=== PATIENT | female | born 1945 | race American Indian/Alaskan Native ===

== ENCOUNTER 2018-10-30 15:43 | Inpatient (IN) | payer MEDICARE ==
--- NOTE | 2018-10-30 15:50 | Emergency Department Report ---
ED Neuro Deficit HPI - General Chief Complaint: Neuro Symptoms/Deficit Stated Complaint: POSSIBLE STROKE Time Seen by Provider: 10/30/18 15:48 Source: patient, EMS Mode of arrival: Stretcher Limitations: No Limitations - History of Present Illness Initial Comments: Patient c/o a sudden onset of aphesia at 1500 hours today. This has resolved currently per patient and EMS. Patient is on Eliquis. -: Sudden Time: 17:00 Last Observed Normal: 17:00 Location: speech History of same: No Place: home Severity: Unable to Determine On Anticoagulants: Yes Context: sudden onset Associated Symptoms: denies other symptoms Treatments Prior to Arrival: none - Related Data Home Medications: Home Medications Medication Instructions Recorded Confirmed Last Taken AtorvaSTATin [Lipitor] 20 mg PO DAILY 01/29/16 10/30/18 10/29/18 Linagliptin [Tradjenta] 5 mg PO QDAY 01/29/16 10/30/18 10/29/18 Metoprolol-HCTZ 100-50 mg TAB 1 tab PO DAILY 01/29/16 10/30/18 10/29/18 Mv-Mn/Iron/Folic Acid/Herb 190 1 tab PO DAILY 01/29/16 10/30/18 10/29/18 [Vitamin D3 Complete Caplet] NIFEdipine [Nifedipine ER] 30 mg PO DAILY 01/29/16 10/30/18 10/29/18 Nettleton-3 Fatty Acids [Nettleton-3] 1 tab PO DAILY 01/29/16 10/30/18 10/29/18 Vitamin B Complex 1 tab PO DAILY 01/29/16 10/30/18 10/29/18 Apixaban [Eliquis] 2.5 mg PO DAILY 10/30/18 10/30/18 10/29/18 Allergies/Adverse Reactions: Allergies Allergy/AdvReac Type Severity Reaction Status Date / Time No Known Allergies Allergy Verified 10/30/18 16:34 ED Review of Systems ROS: Stated complaint: POSSIBLE STROKE Other details as noted in HPI Comment: All other systems reviewed and negative Constitutional: denies: chills, fever Eyes: denies: eye pain, eye discharge, vision change ENT: denies: ear pain, throat pain Respiratory: denies: cough, shortness of breath, wheezing Cardiovascular: denies: chest pain, palpitations Endocrine: no symptoms reported Gastrointestinal: denies: abdominal pain, nausea, diarrhea Genitourinary: denies: urgency, dysuria, discharge Musculoskeletal: denies: back pain, joint swelling, arthralgia Skin: denies: rash, lesions Neurological: denies: headache, weakness, numbness, paresthesias, confusion Psychiatric: denies: anxiety, depression Hematological/Lymphatic: denies: easy bleeding, easy bruising ED Past Medical Hx - Past Medical History Hx Hypertension: Yes Hx Diabetes: Yes Hx Deep Vein Thrombosis: Yes Hx Arthritis: Yes Additional medical history: diabetic neuropathy - Social History Smoking Status: Never Smoker - Medications Home Medications: Home Medications Medication Instructions Recorded Confirmed Last Taken Type AtorvaSTATin [Lipitor] 20 mg PO DAILY 01/29/16 10/30/18 10/29/18 History Linagliptin [Tradjenta] 5 mg PO QDAY 01/29/16 10/30/18 10/29/18 History Metoprolol-HCTZ 100-50 mg TAB 1 tab PO DAILY 01/29/16 10/30/18 10/29/18 History Mv-Mn/Iron/Folic Acid/Herb 190 1 tab PO DAILY 01/29/16 10/30/18 10/29/18 History [Vitamin D3 Complete Caplet] NIFEdipine [Nifedipine ER] 30 mg PO DAILY 01/29/16 10/30/18 10/29/18 History Nettleton-3 Fatty Acids [Nettleton-3] 1 tab PO DAILY 01/29/16 10/30/18 10/29/18 History Vitamin B Complex 1 tab PO DAILY 01/29/16 10/30/18 10/29/18 History Apixaban [Eliquis] 2.5 mg PO DAILY 10/30/18 10/30/18 10/29/18 History ED Neuro Physical Exam - General Limitations: No Limitations General appearance: alert, in no apparent distress Suspected Stroke: Yes - Head Head exam: Present: atraumatic, normocephalic - Eye Eye exam: Present: normal appearance, PERRL, EOMI Pupils: Present: normal accommodation - ENT ENT exam: Present: normal exam, normal orophraynx, mucous membranes moist - Neck Neck exam: Present: normal inspection, full ROM. Absent: tenderness, meningismus - Respiratory Respiratory exam: Present: normal lung sounds bilaterally. Absent: respiratory distress, wheezes, rales, rhonchi - Cardiovascular Cardiovascular Exam: Present: regular rate, normal rhythm. Absent: systolic murmur, diastolic murmur, rubs, gallop - GI/Abdominal GI/Abdominal exam: Present: soft, normal bowel sounds - Extremities Exam Extremities exam: Present: normal inspection, normal capillary refill - Back Exam Back exam: Present: normal inspection, full ROM - Neurological Exam Neurological exam: Present: alert, oriented X3, CN II-XII intact - NIHSS Assessment Interval: Baseline 1a. Level of Consciousness: alert/keenly responsive 1b. LOC Questions: answers both correctly 1c. LOC Commands: performs tasks correctly 2. Best Gaze: normal 3. Visual: no visual loss 4. Facial Palsy: normal symmetrical movement 5b. Motor Arm Right: no drift 5a. Motor Arm Left: no drift 6a. Motor Leg Left: no drift 6b. Motor Leg Right: some gravity effort 7. Limb Ataxia: absent 8. Sensory: normal 9. Best Language: no aphasia 10. Dysarthria: normal 11. Extinction/Inattention: no abnormality Total Score: 2 Stroke Severity: Minor Stroke - Psychiatric Psychiatric exam: Present: normal affect, normal mood - Skin Skin exam: Present: warm, dry, intact, normal color. Absent: rash ED Course Vital Signs 10/30/18 16:39 Temperature 98.6 F Pulse Rate 127 H Respiratory 18 Rate Blood Pressure 127/76 [Right] O2 Sat by Pulse 98 Oximetry - Reevaluation(s) Reevaluation #1: 10/30/18 17:09 On reevaluation, patient passed swallow study and her condition is unchanged. - Consultations Consultation #1: 10/30/18 16:06 Teleneurologist telephone coin box collector Dr Kishore Gay was consulted and he said patient is NOT a candidate for TPA. He recommend admission and further evaluation with MRI/MRA by the hospitalist. Consultation #2: 10/30/18 17:09 Dr Castillo to admit patient for further evaluation and management. - Lab Data Result diagrams: 10/30/18 16:13 10/30/18 16:13 Lab Results 10/30/18 10/30/18 10/30/18 Range/Units 16:13 16:13 16:26 WBC 12.2 H (4.5-11.0) K/mm3 RBC 6.07 H (3.65-5.03) M/mm3 Hgb 15.6 H (10.1-14.3) gm/dl Hct 48.2 H (30.3-42.9) % MCV 79 (79-97) fl MCH 26 L (28-32) pg MCHC 32 (30-34) % RDW 19.9 H (13.2-15.2) % Plt Count 247 (140-440) K/mm3 Lymph % (Auto) 9.7 L (13.4-35.0) % [place] % (Auto) 10.3 H (0.0-7.3) % Eos % (Auto) 0.7 (0.0-4.3) % Baso % (Auto) 0.6 (0.0-1.8) % Lymph # 1.2 (1.2-5.4) K/mm3 [place] # 1.3 H (0.0-0.8) K/mm3 Eos # 0.1 (0.0-0.4) K/mm3 Baso # 0.1 (0.0-0.1) K/mm3 Seg Neutrophils % 78.7 H (40.0-70.0) % Seg Neutrophils # 9.6 H (1.8-7.7) K/mm3 Sodium 139 (137-145) mmol/L Potassium 3.3 L (3.6-5.0) mmol/L Chloride 99.9 (98-107) mmol/L Carbon Dioxide 22 (22-30) mmol/L Anion Gap 20 mmol/L BUN 9 (7-17) mg/dL Creatinine 0.8 (0.7-1.2) mg/dL Estimated GFR > 60 ml/min BUN/Creatinine Ratio 11 % Glucose 93 (65-100) mg/dL Calcium 7.4 L (8.4-10.2) mg/dL Total Bilirubin 0.80 (0.1-1.2) mg/dL AST 17 (5-40) units/L ALT 12 (7-56) units/L Alkaline Phosphatase 99 (35-129) units/L Troponin T < 0.010 (0.00-0.029) ng/mL Total Protein 7.1 (6.3-8.2) g/dL Albumin 3.6 L (3.9-5) g/dL Albumin/Globulin Ratio 1.0 % - EKG Data -: EKG Interpreted by Ky Rate: tachycardia When compared to previous EKG there are: previous EKG unavailable Interpretation: nonspecific ST-T wave yonatan 10/30/18 16:20 No STEMI. Prolonged QT. - Radiology Data Radiology results: report reviewed CT Head without contrast is negative. - Medical Decision Making Patient will be admitted for TIA workup. Aspirin was not given per Dr Gay (Teleneurologist) recommendation. Critical Care Time: Yes Critical care time in (mins) excluding proc time.: 45 Critical care attestation.: If time is entered above; I have spent that time in minutes in the direct care of this critically ill patient, excluding procedure time. ED Disposition Clinical Impression: TIA (transient ischemic attack), Sinus tachycardia Disposition: OP ADMIT IP TO THIS HOSP Is pt being admited?: Yes Does the pt Need Aspirin: No Condition: Stable Referrals: LUZ MAGDLAENO MD [Primary Care Provider] - 3-5 Days Time of Disposition: 17:00
--- NOTE | 2018-10-30 16:00 | Consultation ---
History of Present Illness Consult date: 10/30/18 Medications and Allergies Allergies Allergy/AdvReac Type Severity Reaction Status Date / Time No Known Allergies Allergy Unverified 01/29/16 14:45 Home Medications Medication Instructions Recorded Confirmed Last Taken Type AtorvaSTATin [Lipitor] 20 mg PO DAILY 01/29/16 02/24/16 01/28/16 History Linagliptin [Tradjenta] 5 mg PO QDAY 01/29/16 02/24/16 01/28/16 History Metoprolol-HCTZ 100-50 mg TAB 1 tab PO DAILY 01/29/16 02/24/16 01/27/16 History Mv-Mn/Iron/Folic Acid/Herb 190 1 tab PO DAILY 01/29/16 02/24/16 01/28/16 History [Vitamin D3 Complete Caplet] NIFEdipine [Nifedipine ER] 30 mg PO DAILY 01/29/16 02/24/16 01/28/16 History Belle-3 Fatty Acids [Belle-3] 1 tab PO DAILY 01/29/16 02/24/16 01/28/16 History Vitamin B Complex 1 tab PO DAILY 01/29/16 02/24/16 01/28/16 History Warfarin [Coumadin] 7.5 mg PO DAILY@1700 14 Days 02/25/16 Unknown Rx tablet Warfarin [Coumadin] 10 mg PO DAILY@1700 #30 tablet 03/03/16 Unknown Rx - Assessment Assessment Interval: Baseline - Level of Consciousness 1a. Level of Consciousness: alert/keenly responsive - LOC Questions 1b. LOC Questions: answers both correctly - LOC Command 1c. LOC Commands: performs tasks correctly - Best Gaze 2. Best Gaze: normal - Visual 3. Visual: no visual loss - Facial Palsy 4. Facial Palsy: normal symmetrical movement - Motor Arm 5a. Motor Arm Left: no drift 5b. Motor Arm Right: no drift - Motor Leg 6a. Motor Leg Left: no drift 6b. Motor Leg Right: some gravity effort - Limb Ataxia 7. Limb Ataxia: absent - Sensory 8. Sensory: normal (deficits are chronic) - Best Language 9. Best Language: no aphasia - Dysarthria 10. Dysarthria: normal - Extinction and Inattention 11. Extinction/Inattention: no abnormality - Scoring Total Score: 2 Stroke Severity: Minor Stroke Assessment and Plan Date of Service 10/30/2018 [facility] Comments: Last time known well: _ 15:00 Door time: _15:41 [facility] contacted: _[phone] [facility] at bedside: _1537 NIHSS assessment time: _15:58 consult end time: _16:04 Impression: transient speech impairment Consistent with a TIA (vs a small stroke) Does (not) meet Large Vessel Occlusion (LVO) screening criteria (Aphasia, Neglect, Gaze deviation/preference, Dense hemiparesis, or Visual field deficits on exam), therefore advanced imaging (CTA head and neck and CTP brain) is (not) indicated. Differential Diagnosis: 1. Cardioembolic stroke 2. Small vessel disease/ lacune 3. Thromboembolic, [id number] mechanism 4. Hypercoagulable state-related infarct 5. Transient ischemic attack 6. Thrombotic mechanism, large artery disease tPA decision and other recommendations: _ Patient is not a tPA candidate Head CT did not show any acute hemorrhage. reviewed report (if available) and images Reason: _ on Eliquis; also speech impairment resolved, points on NIHSS are chronic deficits. Patient is not a JACQUELYN candidate: _ Thrombectomy not considered since large proximal intracranial vessel occlusion is not suspected. Recommendations dysphagia screen continue eliquis head of bed flat IV fluids NS Stroke work up with: noncontrast brain MRI, head and neck MRA (or CTA), 2D ECHO, lipid panel, HbA1c (Goal LDL<70, HbA1c<7) inpatient neurology consultation Inpatient stroke evaluation as per Neurology/ Internal Medicine Discussed with ED physician/medical staff Please contact [employer] Navigator to reach me if further questions/concerns arise. Reason for Stroke Alert and History of Present Illness: _ Patient is a(n) 73 years old female, with history of gallbladder surgery on Wednesday (was off eliquis prior to surgery) back on eliquis for 2 days, also history of Atrial Fibrillation, hypertension, Diabetes Mellitus, renal disease. Is wheelchair bound at baseline. last known well: 15:00 sudden onset transient aphasia. Review of Systems: Constitutional: Negative except as documented in history of present illness. Eye: Negative except as documented in history of present illness. Ear/Nose/Mouth/Throat: Negative except as documented in history of present i llness. Respiratory: Negative except as documented in history of present illness. Cardiovascular: Negative except as documented in history of present illness. Gastrointestinal: Negative except as documented in history of present illness. Musculoskeletal: Negative except as documented in history of present illness. Neurologic: Negative except as documented in history of present illness. Examination: NIHSS Details documented in the note ___ 2 Medical Decision Making: - Extensive number of diagnosis or management options are considered above. - Extensive amount of complex data reviewed. - High risk of complication and/or morbidity or mortality are associated with differential diagnostic considerations above. - There may be Uncertain outcome and increased probability of prolonged functional impairment or high probability of severe prolonged functional impairment associated with some of these differential diagnoses. Medical Data Reviewed: 1.Data reviewed include clinical labs, radiology, Medical Tests; 2.Tests results discussed w/performing or interpreting physician; 3.Obtaining/reviewing old medical records; 4.Obtaining case history from another source; 5.Independent review of image, tracing or specimen. When possible Patient/family were informed the Neurology Consult would happen via TeleHealth consult by way of interactive audio and video telecommunications and consented to receiving care in this manner. Case discussed with the Medical staff. Critical Care notation: I was called to see this critical patient emergently. I personally evaluated this critical patient for acute stroke evaluation and determining their eligibility for IV Alteplase and interventional therapies. I have spent approximately _27_ minutes with the patient, including time at bedside, time discussing the case with other physicians, reviewing plan of care, and time independently reviewing the records and scans.
--- NOTE | 2018-10-30 16:17 | Cat Scan Report ---
CT BRAIN: 10/30/2018 INDICATION / CLINICAL INFORMATION: neuro deficits <6hrs or sx present upon awakening. COMPARISON: None available. FINDINGS: BRAIN/INTRACRANIAL STRUCTURES: Unenhanced CT images of the brain demonstrate no evidence of acute int racranial abnormality. Ventricles and sulci are prominent in size, consistent with normal age-related atrophic change. There is no CT evidence of acute ischemic injury, hemorrhage, or mass. There are no abnormal extra-ax ial fluid collections. Atherosclerotic vascular calcifications are present in the distal internal carotid arteries and verte bral arteries. EXTRACRANIAL STRUCTURES: Unremarkable. IMPRESSION: No acute abnormality. CS notification [address] scans at this location are performed using dose reduction to ALARA by means of automated expos ure control. Signer Name: Petr Delacruz MD Signed: 10/30/2018 4:13 PM Workstation Name: [id number]
[2018-10-30 16:32] LABS: Basophils # (Auto) 0.1 K/mm3 (0.0-0.1); Basophils % (Auto) 0.6 % (0.0-1.8); Eosinophils # (Auto) 0.1 K/mm3 (0.0-0.4); Eosinophils % (Auto) 0.7 % (0.0-4.3); Hematocrit 48.2 % (30.3-42.9); Hemoglobin 15.6 gm/dl (10.1-14.3); Lymphocytes # (Auto) 1.2 K/mm3 (1.2-5.4); Lymphocytes % (Auto) 9.7 % (13.4-35.0); Mean Corpuscular HGB Conc 32 % (30-34); Mean Corpuscular Volume 79 fl (79-97); Monocytes # (Auto) 1.3 K/mm3 (0.0-0.8); Monocytes % (Auto) 10.3 % (0.0-7.3); Platelet Count 247 K/mm3 (140-440); Red Blood Count 6.07 M/mm3 (3.65-5.03); Red Cell Distribution Width 19.9 % (13.2-15.2)
[2018-10-30 16:59] LABS: Alanine Aminotransferase 12 units/L (7-56); Albumin 3.6 g/dL (3.9-5); BUN/Creatinine Ratio 11; Blood Urea Nitrogen 9 mg/dL (7-17); Calcium 7.4 mg/dL (8.4-10.2); Hemolysis Index 24
[2018-10-30] MEDS ORDERED: NACL 0.9% 1000 ML 1,000 ML IV ONE (17:04)
[2018-10-30 18:00] LABS: INR 1.24 (0.87-1.13)
[2018-10-30] MEDS ORDERED: K-DUR PO ONE (18:00)
[2018-10-30 18:01] LABS: Partial Thromboplastin Time 30.3 Sec. (24.2-36.6)
--- NOTE | 2018-10-30 18:10 | History and Physical Report ---
History of Present Illness Chief complaint: I felt weak, and i could not talk History of present illness: 73 YO Female with Obesity Hypoventilation, HTN, HLD, OA, Neuropathy, DVT on Therapeutic anticoagulation presents to ED for evaluation. Pt states that she experienced a sudden onset of weakness, and inablility to speak around 1500hrs. EMS was notified. Pt daughter is at bedside during exam and interview. Upon EMS arrival, the patient was found to have a neurologic deficit. A code stroke was called and the patient transported to [facility]. Pt seen and evaluated in ED. Teleneurology consulted and the the patient deemed not a candidate for tpa. Pt found to have symptoms consistent with CVA, SIRS, Hypokalemia. Pt admitted to Telemetry and initiated on CVA protocol. Pt denies fever, chills, CP, Palpitations, productive cough, skin rash, trauma, vision loss, headache, unilateral leg swelling, calf pain, or recent ill contacts. Prior admission on 02/24/16 reviewed. All medication listed at time of admission was reconciled. Neurology consulted. Past History Past Medical History: arthritis, diabetes, DVT, hypertension, other (Neuropathy) Past Surgical History: No surgical history, Other (Reviewed) Social history: , Lives alone. denies: smoking, alcohol abuse Family history: diabetes, hypertension Medications and Allergies Allergies Allergy/AdvReac Type Severity Reaction Status Date / Time No Known Allergies Allergy Verified 10/30/18 16:34 Home Medications Medication Instructions Recorded Confirmed Last Taken Type AtorvaSTATin [Lipitor] 20 mg PO DAILY 01/29/16 10/30/18 10/29/18 History Linagliptin [Tradjenta] 5 mg PO QDAY 01/29/16 10/30/18 10/29/18 History Metoprolol-HCTZ 100-50 mg TAB 1 tab PO DAILY 01/29/16 10/30/18 10/29/18 History Mv-Mn/Iron/Folic Acid/Herb 190 1 tab PO DAILY 01/29/16 10/30/18 10/29/18 History [Vitamin D3 Complete Caplet] NIFEdipine [Nifedipine ER] 30 mg PO DAILY 01/29/16 10/30/18 10/29/18 History Allred-3 Fatty Acids [Allred-3] 1 tab PO DAILY 01/29/16 10/30/18 10/29/18 History Vitamin B Complex 1 tab PO DAILY 01/29/16 10/30/18 10/29/18 History Apixaban [Eliquis] 2.5 mg PO DAILY 10/30/18 10/30/18 10/29/18 History DULoxetine [Cymbalta] 30 mg PO BID 10/31/18 10/31/18 10/30/18 09:00 History Review of Systems Constitutional: no weight loss, no weight gain, no fever, no sweats Ears, nose, mouth and throat: no ear discharge, no decreased hearing, no nasal congestion Breasts: no swelling, no mass Cardiovascular: no chest pain, no palpitations, no edema Respiratory: no cough, no cough with sputum, no excessive sputum Gastrointestinal: no abdominal pain, no vomiting, no change in bowel habits, no hematemesis, no coffee ground emesis, no BRBPR, no hematochezia Genitourinary Female: no dysmenorrhea, no pelvic pain, no flank pain, no dysuria, no urgency Rectal: no pain, no incontinence, no bleeding Musculoskeletal: no neck stiffness, no neck pain, no arm numbness/tingling, no low back pain, no shooting leg pain, no redness of joints Integumentary: no rash, no pruritis, no sores, no jaundice, no boils Neurological: weakness, aphasia, change in speech, no head injury, no paralysis, no tingling Psychiatric: no memory loss, no change in sleep habits, no insomnia, no hypersomnia, no change in appetite, no suicidal ideation Endocrine: no polyphagia, no nocturia, no increase in ring/shoe/hat size, no proptosis, no thyroid mass Hematologic/Lymphatic: no easy bruising, no easy bleeding, no lymphadenopathy, no lymphedema Allergic/Immunologic: no urticaria, no allergic rhinitis, no wheezing, no persistent infections, no angioedema Exam - Constitutional Vitals: Temp Pulse Resp BP Pulse Ox 98.6 F 127 H 18 127/76 100 10/30/18 16:39 10/30/18 16:39 10/30/18 16:39 10/30/18 16:39 10/30/18 17:12 General appearance: Present: no acute distress, well-nourished - EENT Eyes: Present: PERRL ENT: hearing intact, clear oral mucosa - Neck Neck: Present: supple, normal ROM - Respiratory Respiratory effort: normal Respiratory: bilateral: CTA - Cardiovascular Heart Sounds: Present: S1 & S2. Absent: rub, click - Extremities Extremities: pulses symmetrical, No edema Peripheral Pulses: within normal limits - Abdominal General gastrointestinal: Present: soft, non-tender, non-distended, normal bowel sounds Female genitourinary: Present: normal - Integumentary Integumentary: Present: clear, warm, dry - Musculoskeletal Musculoskeletal: gait normal, strength equal bilaterally - Psychiatric Psychiatric: appropriate mood/affect, intact judgment & insight - Neurologic Neurologic: CNII-XII intact, moves all extremities Results - Labs CBC & Chem 7: 10/30/18 16:13 10/30/18 16:13 Labs: Abnormal lab results 10/30/18 10/30/18 10/30/18 Range/Units 16:13 16:13 16:13 WBC 12.2 H (4.5-11.0) K/mm3 RBC 6.07 H (3.65-5.03) M/mm3 Hgb 15.6 H (10.1-14.3) gm/dl Hct 48.2 H (30.3-42.9) % MCH 26 L (28-32) pg RDW 19.9 H (13.2-15.2) % Lymph % (Auto) 9.7 L (13.4-35.0) % [place] % (Auto) 10.3 H (0.0-7.3) % [place] # 1.3 H (0.0-0.8) K/mm3 Seg Neutrophils % 78.7 H (40.0-70.0) % Seg Neutrophils # 9.6 H (1.8-7.7) K/mm3 PT (12.2-14.9) Sec. INR (0.87-1.13) Potassium 3.3 L (3.6-5.0) mmol/L Calcium 7.4 L (8.4-10.2) mg/dL Magnesium 1.50 L (1.7-2.3) mg/dL Albumin 3.6 L (3.9-5) g/dL 10/30/18 Range/Units 16:25 WBC (4.5-11.0) K/mm3 RBC (3.65-5.03) M/mm3 Hgb (10.1-14.3) gm/dl Hct (30.3-42.9) % MCH (28-32) pg RDW (13.2-15.2) % Lymph % (Auto) (13.4-35.0) % [place] % (Auto) (0.0-7.3) % [place] # (0.0-0.8) K/mm3 Seg Neutrophils % (40.0-70.0) % Seg Neutrophils # (1.8-7.7) K/mm3 PT 15.3 H (12.2-14.9) Sec. INR 1.24 H (0.87-1.13) Potassium (3.6-5.0) mmol/L Calcium (8.4-10.2) mg/dL Magnesium (1.7-2.3) mg/dL Albumin (3.9-5) g/dL Assessment and Plan - Patient Problems (1) CVA (cerebral vascular accident) Current Visit: Yes Status: Acute Qualifiers: Laterality of affected vessel: unspecified Plan to address problem: CVA Protocol: Admit to telemetry, CT Head, MRI Brain, MRA Brain, Echo, Carotid Doppler, PT/OT/Speech Therapy, Neurology consulted, antiplatelet therapy, lipid panel, statin therapy, (2) DVT, bilateral lower limbs Current Visit: No Status: Acute Qualifiers: Affected thrombotic vein of extremity: popliteal Chronicity: acute Qualified Code(s): I82.433 - Acute embolism and thrombosis of popliteal vein, bilateral Plan to address problem: Prophylactic anticoagulation, supportive care, early ambulation (3) Morbid obesity Current Visit: No Status: Chronic Plan to address problem: Balanced diet, increased physical activity at discharge (4) SIRS (systemic inflammatory response syndrome) Current Visit: Yes Status: Acute Plan to address problem: IV antibiotic therapy, CBC, CMP, Chest x ray, urinalysis, empiric antibiotic therapy (5) Obesity hypoventilation syndrome Current Visit: Yes Status: Acute Plan to address problem: Supplemental oxygen, nebulizer therapy, pulse oximetry, balanced diet, Increased physical activity at discharge, NIPPV as clinically indicated (6) HTN (hypertension) Current Visit: Yes Status: Acute Qualifiers: Hypertension type: essential hypertension Qualified Code(s): I10 - Essential (primary) hypertension Plan to address problem: Monitor bp q shift, continue medical management (7) Diabetes Current Visit: Yes Status: Acute Plan to address problem: ADA diet, insulin, accu check, hypoglycemia protocol (8) Hypokalemia Current Visit: Yes Status: Acute Plan to address problem: Repleted, dietary supplementation (9) Hypomagnesemia syndrome Current Visit: Yes Status: Acute Plan to address problem: Repleted in ED, supportive care. (10) Arthritis Current Visit: Yes Status: Acute Plan to address problem: Pain control, supportive care, (11) DVT prophylaxis Current Visit: Yes Status: Acute Plan to address problem: SCD to BLE while in bed.
[2018-10-30] MEDS ORDERED: PROVENTIL IH PRN (18:12)
[2018-10-30] MEDS ORDERED: TYLENOL PO PRN (18:12)
[2018-10-30] MEDS ORDERED: ZOFRAN IV PRN (18:12)
[2018-10-30] MEDS ORDERED: DULCOLAX PR PRN (18:12)
[2018-10-30] MEDS ORDERED: PHENERGAN PR PRN (18:12)
[2018-10-30] MEDS ORDERED: REGLAN PO PRN (18:12)
[2018-10-30] MEDS ORDERED: SODIUM CHLORIDE FLUSH SYRINGE 10 ML IV PRN (18:12)
[2018-10-30] MEDS ORDERED: MILK OF MAGNESIA PO PRN (18:12)
--- NOTE | 2018-10-30 19:28 | Consultation ---
HISTORY OF PRESENT ILLNESS: This 73-year-old black female who presents to the Emergency Room after developing aphasia at home. EMS had the patient en route. This occurred approximately one hour prior to arrival in the [facility]. En route from EMS, her aphasia, improved; however, she was in atrial fibrillation and her heart rate was 130. She was having a rapid ventricular response at that point. In the interval, the patient's blood pressure subsequently was 140/70. Her blood glucose was checked and it was 90. She is a hypertensive, diabetic, and had been on Eliquis therapy. About one week ago, the Eliquis was stopped, so that she could have gallbladder surgery. The Eliquis was resumed, although I am not sure of the interval, it was resumed and that the patient is partially aphasic at present and detailed history cannot be obtained from her. EMS did not report any focal weakness, focal sensory loss. She does not have a seizure. She remained alert, appropriate without any other focal neurological findings. CT scan of the head was done and I did review this personally in real-time and there are no remarkable abnormalities. Lewis white matter normal, ventricular size is normal. The pattern of cortical sulci and gyri are within normal limits for the patient's stated age of 73. I see no evidence of embolization or acute stroke. Neurological exam does show the patient has symmetrical movements, although she does feel generally weak. She is alert, responds to simple commands, but cannot engage in a full conversation. She may have a very mild degree of expressive aphasia, but she does not have visual field cut sensory loss. I do not observe any seizure activity and she does have intact movement of all extremities and the cranial nerves are entirely intact. IMPRESSION: This patient has resolution of almost all of her neurological symptoms, although she does still believe have an expressive aphasia, which is very minimal. This is rapidly improving. Her best her stroke scale is 1 although one would argue that may even be considered 0 since we do not know her baseline status. She has been on Eliquis therapy per the history. She is currently normotensive and she has an appropriate blood sugar. She is to be further assessed by the Emergency Room physician. Labs are to be obtained. Certainly, it would be interested in looking at the electrolytes, sodium, potassium, the form of low blood glucose A1c, etc. The patient also may require a CTA at the discretion of the Emergency Room physician pending obtaining the creatinine to be sure that she can obtain IV contrast. The patient's condition at this point is stable and rapidly improving with documented time frame. JOB# [id number] REYNOLD/ANAHI
--- NOTE | 2018-10-30 19:40 | XRay Report ---
CHEST 1 VIEW 10/30/2018 6:58 PM INDICATION / CLINICAL INFORMATION: cough. COMPARISON: None available. FINDINGS: SUPPORT DEVICES: None. HEART / MEDIASTINUM: Heart is upper normal size. LUNGS / PLEURA: No significant pulmonary or pleural abnormality. No pneumothorax. ADDITIONAL FINDINGS: No significant additional findings. IMPRESSION: 1. No acute findings. Signer Name: Jennie Foote MD Signed: 10/30/2018 7:36 PM Workstation Name: [id number]
--- NOTE | 2018-10-30 19:59 | Vascular Lab Report ---
"DUPLEX DOPPLER ULTRASOUND CAROTID, BILATERAL INDICATION: stroke. COMPARISON: None available. FINDINGS: RIGHT CAROTID: No significant atherosclerotic plaque. CCA velocity: 93 cm/sec. ICA peak systolic velocity: 68 cm/sec. ICA/CCA PSV Ratio: Less than 1. Right Vertebral Artery: Antegrade flow. LEFT CAROTID: No significant atherosclerotic plaque. CCA velocity: 118 cm/sec. ICA peak systolic velocity: 76 cm/sec. ICA/CCA PSV Ratio: Less than 1. Left Vertebral Artery: Antegrade flow. IMPRESSION: 1. Right Internal Carotid Artery: Less than 50% diameter stenosis. 2. Left Internal Carotid Artery: Less than 50% diameter stenosis. Velocity criteria are extrapolated from diameter data as defined by the Society of Radiologists in Ul trasound Consensus Conference, Radiology 2003; 229;340-346. Degree of || ICA PSV || Plaque || ICA/CCA Stenosis (%) || (cm/sec) || estimate (%) || PSV Ratio - Normal...............<125..............None.................<2.0 - <50....................<125..............<50....................<2.0 - 50-69................125-230.........>50....................2.0-4.0 - >70 but <100....>230..............>50....................>4.0 - Near...................High, low, .....visible................variable occlusion or none - Total...................None.............visible;................N/A occlusion no lumen Signer Name: Monty Adams MD Signed: 10/30/2018 7:54 PM Workstation Name: [id number]"
[2018-10-30] MEDS: ROCEPHIN/NS 1 GM/50 ML 1 GM/50 ML BAG IV SCH (21:59)
[2018-10-31 01:58] LABS: Bilirubin,Urine NEG (Negative); Blood,Urine NEG (Negative); Color,Urine Amber (Yellow)
[2018-10-31 01:59] LABS: RBC,Urine < 1.0 /HPF (0.0-6.0)
[2018-10-31] MEDS: MORPHINE IV PRN (04:27)
[2018-10-31 07:57] LABS: Chol/HDL Ratio 1.77 %
--- NOTE | 2018-10-31 08:02 | Progress Note ---
Subjective Date of service: 10/31/18 Interval history: please see my note from the stroke alert and CT scan review at the time of the stroke alert... highly problematic the issue of the recent GALL BLADDER SURGERU AND MISSED THE eLIQUIS... SUSPECT aTRIAL FIBRILLATION CAUSATION I DID SPEAK TO EMS AND DOCUMENTED ALL THE FACTORS MRI PENDING AND OF COURSE THE ECHO Objective - Vital Sign Vital Signs - 12hr 10/30/18 10/30/18 10/30/18 20:06 20:19 23:02 Temperature 98.2 F Pulse Rate 126 H 126 H 125 H Respiratory 18 18 Rate Blood Pressure 137/92 Blood Pressure 126/73 [Right] O2 Sat by Pulse 100 97 Oximetry 10/30/18 10/31/18 10/31/18 23:03 03:58 04:01 Temperature 99.3 F 98.5 F Pulse Rate 125 H Respiratory 18 Rate Blood Pressure 139/86 Blood Pressure [Right] O2 Sat by Pulse 96 Oximetry 10/31/18 10/31/18 04:27 07:37 Temperature 98.5 F Pulse Rate 123 H Respiratory 18 18 Rate Blood Pressure 126/71 Blood Pressure [Right] O2 Sat by Pulse 96 Oximetry - Laboratory Findings CBC and BMP: 10/30/18 16:13 10/30/18 16:13 Abnormal Lab Findings: Abnormal Labs 10/30/18 10/30/18 10/30/18 16:13 16:13 16:13 WBC 12.2 H RBC 6.07 H Hgb 15.6 H Hct 48.2 H MCH 26 L RDW 19.9 H Lymph % (Auto) 9.7 L [place] % (Auto) 10.3 H [place] # 1.3 H Seg Neutrophils % 78.7 H Seg Neutrophils # 9.6 H PT INR Potassium 3.3 L Calcium 7.4 L Magnesium 1.50 L Albumin 3.6 L HDL Cholesterol Urine WBC (Auto) U Epithel Cells (Auto) 10/30/18 10/30/18 10/31/18 16:25 18:11 06:46 WBC RBC Hgb Hct MCH RDW Lymph % (Auto) [place] % (Auto) [place] # Seg Neutrophils % Seg Neutrophils # PT 15.3 H INR 1.24 H Potassium Calcium Magnesium Albumin HDL Cholesterol 67 H Urine WBC (Auto) 12.0 H U Epithel Cells (Auto) 16.0 H
--- NOTE | 2018-10-31 08:06 | Consultation ---
History of Present Illness - Reason for Consult Consult date: 10/30/18 - History of Present Illness SEE MY COMPLETE CONSULT NOTE FROM THE STROKE ALERT AT TIME BROUGHT BY ems Past History Past Medical History: arthritis, diabetes, DVT, hypertension, other (Neuropathy) Past Surgical History: No surgical history, Other (Reviewed) Social history: , Lives alone. denies: smoking, alcohol abuse Family history: diabetes, hypertension Medications and Allergies Allergies Allergy/AdvReac Type Severity Reaction Status Date / Time No Known Allergies Allergy Verified 10/30/18 16:34 Home Medications Medication Instructions Recorded Confirmed Last Taken Type AtorvaSTATin [Lipitor] 20 mg PO DAILY 01/29/16 10/30/18 10/29/18 History Linagliptin [Tradjenta] 5 mg PO QDAY 01/29/16 10/30/18 10/29/18 History Metoprolol-HCTZ 100-50 mg TAB 1 tab PO DAILY 01/29/16 10/30/18 10/29/18 History Mv-Mn/Iron/Folic Acid/Herb 190 1 tab PO DAILY 01/29/16 10/30/18 10/29/18 History [Vitamin D3 Complete Caplet] NIFEdipine [Nifedipine ER] 30 mg PO DAILY 01/29/16 10/30/18 10/29/18 History [place]-3 Fatty Acids [[place]-3] 1 tab PO DAILY 01/29/16 10/30/18 10/29/18 History Vitamin B Complex 1 tab PO DAILY 01/29/16 10/30/18 10/29/18 History Apixaban [Eliquis] 2.5 mg PO DAILY 10/30/18 10/30/18 10/29/18 History DULoxetine [Cymbalta] 30 mg PO BID 10/31/18 10/31/18 10/30/18 09:00 History Active Meds: Active Medications Acetaminophen (Tylenol) 650 mg PO Q4H PRN PRN Reason: Pain, Mild (1-3) Albuterol (Proventil) 2.5 mg IH Q3H PRN PRN Reason: Shortness Of Breath Apixaban (Eliquis) 2.5 mg PO DAILY BEA; Protocol Aspirin (Aspirin) 325 mg PO QDAY BEA Atorvastatin Calcium (Lipitor) 40 mg PO QHS [facility] Last Admin: 10/30/18 22:00 Dose: 40 mg Documented by: Bisacodyl (Dulcolax) 10 mg MI QDAY PRN PRN Reason: Constipation Ceftriaxone Sodium (Rocephin/Ns 1 Gm/50 Ml) 1 gm in 50 mls @ 100 mls/hr IV Q24HR [facility]; Protocol Last Admin: 10/30/18 21:59 Dose: 100 mls/hr Documented by: Magnesium Hydroxide (Milk Of Magnesia) 30 ml PO Q4H PRN PRN Reason: Constipation Metoclopramide HCl (Reglan) 10 mg PO Q6H PRN PRN Reason: Nausea And Vomiting Morphine Sulfate (Morphine) 2 mg IV Q4H PRN PRN Reason: Pain, Moderate (4-6) Last Admin: 10/31/18 04:27 Dose: 2 mg Documented by: Ondansetron HCl (Zofran) 4 mg IV Q8H PRN PRN Reason: Nausea And Vomiting Last Admin: 10/31/18 05:27 Dose: 4 mg Documented by: Promethazine HCl (Phenergan) 25 mg MI Q6H PRN PRN Reason: Nausea And Vomiting Sodium Chloride (Sodium Chloride Flush Syringe 10 Ml) 10 ml IV PRN PRN PRN Reason: LINE FLUSH Exam - Constitutional Vitals: Temp Pulse Resp BP Pulse Ox 98.5 F 123 H 18 126/71 96 10/31/18 07:37 10/31/18 07:37 10/31/18 07:37 10/31/18 07:37 10/31/18 07:37 Results - Labs CBC & Chem 7: 10/30/18 16:13 10/30/18 16:13 Labs: Abnormal lab results 10/30/18 10/30/18 10/30/18 Range/Units 16:13 16:13 16:13 WBC 12.2 H (4.5-11.0) K/mm3 RBC 6.07 H (3.65-5.03) M/mm3 Hgb 15.6 H (10.1-14.3) gm/dl Hct 48.2 H (30.3-42.9) % MCH 26 L (28-32) pg RDW 19.9 H (13.2-15.2) % Lymph % (Auto) 9.7 L (13.4-35.0) % [place] % (Auto) 10.3 H (0.0-7.3) % [place] # 1.3 H (0.0-0.8) K/mm3 Seg Neutrophils % 78.7 H (40.0-70.0) % Seg Neutrophils # 9.6 H (1.8-7.7) K/mm3 PT (12.2-14.9) Sec. INR (0.87-1.13) Potassium 3.3 L (3.6-5.0) mmol/L Calcium 7.4 L (8.4-10.2) mg/dL Magnesium 1.50 L (1.7-2.3) mg/dL Albumin 3.6 L (3.9-5) g/dL HDL Cholesterol (40-59) mg/dL Urine WBC (Auto) (0.0-6.0) /HPF U Epithel Cells (Auto) (0-13.0) /HPF 10/30/18 10/30/18 10/31/18 Range/Units 16:25 18:11 06:46 WBC (4.5-11.0) K/mm3 RBC (3.65-5.03) M/mm3 Hgb (10.1-14.3) gm/dl Hct (30.3-42.9) % MCH (28-32) pg RDW (13.2-15.2) % Lymph % (Auto) (13.4-35.0) % [place] % (Auto) (0.0-7.3) % [place] # (0.0-0.8) K/mm3 Seg Neutrophils % (40.0-70.0) % Seg Neutrophils # (1.8-7.7) K/mm3 PT 15.3 H (12.2-14.9) Sec. INR 1.24 H (0.87-1.13) Potassium (3.6-5.0) mmol/L Calcium (8.4-10.2) mg/dL Magnesium (1.7-2.3) mg/dL Albumin (3.9-5) g/dL HDL Cholesterol 67 H (40-59) mg/dL Urine WBC (Auto) 12.0 H (0.0-6.0) /HPF U Epithel Cells (Auto) 16.0 H (0-13.0) /HPF
[2018-10-31] MEDS: ASPIRIN PO SCH (09:08)
[2018-10-31] MEDS: ELIQUIS PO SCH (09:08)
[2018-10-31] MEDS ORDERED: IRON PO SCH (10:00)
[2018-10-31] MEDS ORDERED: HERB PO SCH (10:00)
[2018-10-31] MEDS ORDERED: OMEGA PO SCH (10:00)
[2018-10-31] MEDS ORDERED: VITAMIN B COMPLEX PO SCH (10:00)
[2018-10-31] MEDS ORDERED: MV MN PO SCH (10:00)
[2018-10-31] MEDS ORDERED: FOLIC ACID PO SCH (10:00)
--- NOTE | 2018-10-31 11:15 | Magnetic Resonance Report ---
MRI BRAIN WITHOUT CONTRAST INDICATION: stroke. Seizure. Weakness. Unable to speak. COMPARISON: CT head dated 10/30/2018. FINDINGS: No evidence for acute ischemia, hemorrhage, mass or extra-axial fluid collection. Mild diffuse corti mario alberto volume loss and mild chronic ischemic changes in the white matter are noted. No chronic infarct. Ventricular size is normal. The basal cisterns are patent. The posterior fossa and contents are unremarkable. There is minimal mucosal thickening throughout the paranasal sinuses. The mastoid air cells are well- aerated. IMPRESSION: No acute intracranial process. Mild diffuse cortical volume loss and chronic white matter changes. MRA HEAD WITHOUT CONTRAST HISTORY: Stroke, weakness, unable to speak. COMPARISON: None. TECHNIQUE: Routine MRA of the head is performed. 3-D/MIP reformats postprocessed. CONTRAST: None. FINDINGS: Intracranial vertebral arteries: No significant abnormality. Basilar artery: No significant abnormality. Posterior cerebral arteries: No significant abnormality. Intracranial internal carotid arteries: No significant abnormality. Anterior cerebral arteries: No significant abnormality. Middle cerebral arteries: No significant abnormality. Additional findings: Small right posterior communicating artery is noted. IMPRESSION: 1. No significant abnormality. Signer Name: Cheo Purvis Jr, MD Signed: 10/31/2018 11:11 AM Workstation Name: [id number]
--- NOTE | 2018-10-31 11:18 | Progress Note ---
Assessment and Plan Assessment and plan: CVA. Patient reports what sounds like expressive aphasia that has now resolved. Follow-up MRI/MRA brain and echocardiogram. Carotid Doppler revealed less than 50% stenosis bilaterally. CT scan of head negative. Neurology consult. Atrial fibrillation with RVR. Daughter reports new diagnosis occurring this year but has not seen a vocational auto body instructor as of yet. Rate is not controlled. Continue anticoagulation. Cardiology consultation. History of bilateral lower extremity DVT. Patient was on Eliquis as outpatient. However, it was held due to gallbladder surgery possibly one week ago. We are unsure when the medication was resumed. Multiple Myeloma. Dx Apr 2018. Followed by Dr. Flannery at [place]. SIRS. Continue empiric antibiotics. OHS/HAO. Continue supportive care. O2 Morbid obesity. Patient has been counseled on balanced diet and increase physical activity at discharge. Hypertension. Continue antihypertensive medications. Diabetes mellitus type 2. Continue Accu-Cheks and sliding scale insulin. History Interval history: no new issues Hospitalist Physical - Constitutional Vitals: Temp Pulse Resp BP Pulse Ox 98.5 F 65 18 126/71 96 10/31/18 07:37 10/31/18 10:13 10/31/18 07:37 10/31/18 07:37 10/31/18 07:37 General appearance: Present: no acute distress, well-nourished - EENT Eyes: Present: PERRL, EOM intact ENT: hearing intact, clear oral mucosa, dentition normal - Neck Neck: Present: supple, normal ROM - Respiratory Respiratory effort: normal Respiratory: bilateral: CTA - Cardiovascular Rhythm: regular Heart Sounds: Present: S1 & S2. Absent: gallop, rub - Extremities Extremities: no ischemia, No edema, Full ROM - Abdominal General gastrointestinal: soft, non-tender, non-distended, normal bowel sounds - Integumentary Integumentary: Present: clear, warm, dry - Neurologic Neurologic: CNII-XII intact, moves all extremities Results - Labs CBC & Chem 7: 10/30/18 16:13 10/30/18 16:13 Labs: Laboratory Last Values WBC 12.2 K/mm3 (4.5-11.0) H 10/30/18 16:13 RBC 6.07 M/mm3 (3.65-5.03) H 10/30/18 16:13 Hgb 15.6 gm/dl (10.1-14.3) H 10/30/18 16:13 Hct 48.2 % (30.3-42.9) H 10/30/18 16:13 MCV 79 fl (79-97) 10/30/18 16:13 MCH 26 pg (28-32) L 10/30/18 16:13 MCHC 32 % (30-34) 10/30/18 16:13 RDW 19.9 % (13.2-15.2) H 10/30/18 16:13 Plt Count 247 K/mm3 (140-440) 10/30/18 16:13 Lymph % (Auto) 9.7 % (13.4-35.0) L 10/30/18 16:13 [place] % (Auto) 10.3 % (0.0-7.3) H 10/30/18 16:13 Eos % (Auto) 0.7 % (0.0-4.3) 10/30/18 16:13 Baso % (Auto) 0.6 % (0.0-1.8) 10/30/18 16:13 Lymph # 1.2 K/mm3 (1.2-5.4) 10/30/18 16:13 [place] # 1.3 K/mm3 (0.0-0.8) H 10/30/18 16:13 Eos # 0.1 K/mm3 (0.0-0.4) 10/30/18 16:13 Baso # 0.1 K/mm3 (0.0-0.1) 10/30/18 16:13 Seg Neutrophils % 78.7 % (40.0-70.0) H 10/30/18 16:13 Seg Neutrophils # 9.6 K/mm3 (1.8-7.7) H 10/30/18 16:13 PT 15.3 Sec. (12.2-14.9) H 10/30/18 16:25 INR 1.24 (0.87-1.13) H 10/30/18 16:25 APTT 30.3 Sec. (24.2-36.6) 10/30/18 16:25 17.6 Sec. (15.1-19.6) 10/30/18 16:26 Sodium 139 mmol/L (137-145) 10/30/18 16:13 Potassium 3.3 mmol/L (3.6-5.0) L 10/30/18 16:13 Chloride 99.9 mmol/L (98-107) 10/30/18 16:13 Carbon Dioxide 22 mmol/L (22-30) 10/30/18 16:13 20 mmol/L 10/30/18 16:13 BUN 9 mg/dL (7-17) 10/30/18 16:13 0.8 mg/dL (0.7-1.2) 10/30/18 16:13 Estimated GFR > 60 ml/min 10/30/18 16:13 11 % 10/30/18 16:13 Glucose 93 mg/dL (65-100) 10/30/18 16:13 Calcium 7.4 mg/dL (8.4-10.2) L 10/30/18 16:13 Magnesium 1.50 mg/dL (1.7-2.3) L 10/30/18 16:13 0.80 mg/dL (0.1-1.2) 10/30/18 16:13 AST 17 units/L (5-40) 10/30/18 16:13 ALT 12 units/L (7-56) 10/30/18 16:13 99 units/L (35-129) 10/30/18 16:13 < 0.010 ng/mL (0.00-0.029) 10/30/18 16:26 7.1 g/dL (6.3-8.2) 10/30/18 16:13 3.6 g/dL (3.9-5) L 10/30/18 16:13 1.0 % 10/30/18 16:13 Triglycerides 93 mg/dL (2-149) 10/31/18 06:46 Cholesterol 119 mg/dL (50-199) 10/31/18 06:46 51 mg/dL (50-130) 10/31/18 06:46 67 mg/dL (40-59) H 10/31/18 06:46 1.77 % 10/31/18 06:46 [place] (Yellow) 10/30/18 18:11 Slightly-cloudy (Clear) 10/30/18 18:11 5.0 (5.0-7.0) 10/30/18 18:11 Ur Specific [place] 1.024 (1.003-1.030) 10/30/18 18:11 30 mg/dl mg/dL (Negative) 10/30/18 18:11 Neg mg/dL (Negative) 10/30/18 18:11 20 mg/dL (Negative) 10/30/18 18:11 Neg (Negative) 10/30/18 18:11 Neg (Negative) 10/30/18 18:11 Neg (Negative) 10/30/18 18:11 2.0 mg/dL (<2.0) 10/30/18 18:11 Ur Leukocyte Esterase Sm (Negative) 10/30/18 18:11 12.0 /HPF (0.0-6.0) H 10/30/18 18:11 < 1.0 /HPF (0.0-6.0) 10/30/18 18:11 U Epithel Cells (Auto) 16.0 /HPF (0-13.0) H 10/30/18 18:11 Ur Yeast w Hyphae Few /HPF 10/30/18 18:11 3+ /HPF 10/30/18 18:11 Active Medications - Current Medications Current Medications: Generic Name Dose Route Start Last Admin Trade Name Freq PRN Reason Stop Dose Admin Acetaminophen 650 mg 10/30/18 18:12 Tylenol PO Q4H PRN Pain, Mild (1-3) Albuterol 2.5 mg 10/30/18 18:12 Proventil IH Q3H PRN Shortness Of Breath Apixaban 2.5 mg 10/31/18 10:00 10/31/18 09:08 Eliquis PO 2.5 mg DAILY BEA Administration Protocol Aspirin 325 mg 10/31/18 10:00 10/31/18 09:08 Aspirin PO 325 mg QDAY BEA Administration Atorvastatin Calcium 40 mg 10/30/18 22:00 10/30/18 22:00 Lipitor PO 40 mg QHS BEA Administration Bisacodyl 10 mg 10/30/18 18:12 Dulcolax SC QDAY PRN Constipation Ceftriaxone Sodium 1 gm in 50 mls @ 100 mls/hr 10/30/18 19:18 10/30/18 21:59 Rocephin/Ns 1 Gm/50 Ml IV 100 mls/hr Q24HR BEA Administration Protocol Magnesium Hydroxide 30 ml 10/30/18 18:12 Milk Of Magnesia PO Q4H PRN Constipation Metoclopramide HCl 10 mg 10/30/18 18:12 Reglan PO Q6H PRN Nausea And Vomiting Morphine Sulfate 2 mg 10/31/18 04:11 10/31/18 04:27 Morphine IV 2 mg Q4H PRN Administration Pain, Moderate (4-6) Ondansetron HCl 4 mg 10/30/18 18:12 10/31/18 05:27 Zofran IV 4 mg Q8H PRN Administration Nausea And Vomiting Promethazine HCl 25 mg 10/30/18 18:12 Phenergan SC Q6H PRN Nausea And Vomiting Sodium Chloride 10 ml 10/30/18 18:12 Sodium Chloride Flush Syringe 10 Ml IV PRN PRN LINE FLUSH
[2018-10-31] MEDS: ROCEPHIN/NS 1 GM/50 ML 1 GM/50 ML BAG IV SCH (13:16)
--- NOTE | 2018-10-31 13:54 | Consultation ---
History of Present Illness Consult date: 10/31/18 Past History Past Medical History: arthritis, diabetes, DVT, hypertension, other (Neuropathy) Past Surgical History: No surgical history, Other (Reviewed) Social history: , Lives alone. denies: smoking, alcohol abuse Family history: diabetes, hypertension Medications and Allergies Allergies Allergy/AdvReac Type Severity Reaction Status Date / Time No Known Allergies Allergy Verified 10/30/18 16:34 Home Medications Medication Instructions Recorded Confirmed Last Taken Type AtorvaSTATin [Lipitor] 20 mg PO DAILY 01/29/16 10/30/18 10/29/18 History Linagliptin [Tradjenta] 5 mg PO QDAY 01/29/16 10/30/18 10/29/18 History Metoprolol-HCTZ 100-50 mg TAB 1 tab PO DAILY 01/29/16 10/30/18 10/29/18 History Mv-Mn/Iron/Folic Acid/Herb 190 1 tab PO DAILY 01/29/16 10/30/18 10/29/18 History [Vitamin D3 Complete Caplet] NIFEdipine [Nifedipine ER] 30 mg PO DAILY 01/29/16 10/30/18 10/29/18 History [place]-3 Fatty Acids [[place]-3] 1 tab PO DAILY 01/29/16 10/30/18 10/29/18 History Vitamin B Complex 1 tab PO DAILY 01/29/16 10/30/18 10/29/18 History Apixaban [Eliquis] 2.5 mg PO DAILY 10/30/18 10/30/18 10/29/18 History DULoxetine [Cymbalta] 30 mg PO BID 10/31/18 10/31/18 10/30/18 09:00 History Active Meds: Active Medications Acetaminophen (Tylenol) 650 mg PO Q4H PRN PRN Reason: Pain, Mild (1-3) Albuterol (Proventil) 2.5 mg IH Q3H PRN PRN Reason: Shortness Of Breath Apixaban (Eliquis) 2.5 mg PO DAILY [facility]; Protocol Last Admin: 10/31/18 09:08 Dose: 2.5 mg Documented by: Aspirin (Aspirin) 325 mg PO QDAY [facility] Last Admin: 10/31/18 09:08 Dose: 325 mg Documented by: Atorvastatin Calcium (Lipitor) 20 mg PO QHS [facility] Bisacodyl (Dulcolax) 10 mg NM QDAY PRN PRN Reason: Constipation Duloxetine HCl (Cymbalta) 30 mg PO BID [facility] Hydrochlorothiazide (Hctz) 50 mg PO QDAY [facility] Ceftriaxone Sodium (Rocephin/Ns 1 Gm/50 Ml) 1 gm in 50 mls @ 100 mls/hr IV Q24HR [facility]; Protocol Last Admin: 10/31/18 13:16 Dose: 100 mls/hr Documented by: Linagliptin (Tradjenta) 5 mg PO QDAY [facility] Magnesium Hydroxide (Milk Of Magnesia) 30 ml PO Q4H PRN PRN Reason: Constipation Metoclopramide HCl (Reglan) 10 mg PO Q6H PRN PRN Reason: Nausea And Vomiting Metoprolol Tartrate (Lopressor) 100 mg PO DAILY [facility] Morphine Sulfate (Morphine) 2 mg IV Q4H PRN PRN Reason: Pain, Moderate (4-6) Last Admin: 10/31/18 04:27 Dose: 2 mg Documented by: Nifedipine (Procardia Xl) 30 mg PO DAILY [facility] Ondansetron HCl (Zofran) 4 mg IV Q8H PRN PRN Reason: Nausea And Vomiting Last Admin: 10/31/18 05:27 Dose: 4 mg Documented by: Promethazine HCl (Phenergan) 25 mg NM Q6H PRN PRN Reason: Nausea And Vomiting Sodium Chloride (Sodium Chloride Flush Syringe 10 Ml) 10 ml IV PRN PRN PRN Reason: LINE FLUSH Physical Examination - Vital Signs Vital Signs: Vital Signs Pulse Ox 100 10/30/18 16:08 Results - Laboratory Findings CBC and BMP: 10/30/18 16:13 10/30/18 16:13 Abnormal Lab Findings: Abnormal Labs 10/30/18 10/30/18 10/30/18 16:13 16:13 16:13 WBC 12.2 H RBC 6.07 H Hgb 15.6 H Hct 48.2 H MCH 26 L RDW 19.9 H Lymph % (Auto) 9.7 L [place] % (Auto) 10.3 H [place] # 1.3 H Seg Neutrophils % 78.7 H Seg Neutrophils # 9.6 H PT INR Potassium 3.3 L Calcium 7.4 L Magnesium 1.50 L Albumin 3.6 L HDL Cholesterol Urine WBC (Auto) U Epithel Cells (Auto) 08/02/0710/30/18 10/31/18 16:25 18:11 06:46 WBC RBC Hgb Hct MCH RDW Lymph % (Auto) [place] % (Auto) [place] # Seg Neutrophils % Seg Neutrophils # PT 15.3 H INR 1.24 H Potassium Calcium Magnesium Albumin HDL Cholesterol 67 H Urine WBC (Auto) 12.0 H U Epithel Cells (Auto) 16.0 H Assessment and Plan Neurology consultation report Ms. Brown is a 73-year-old female with a history of hypertension, diabetes, multiple myeloma status post surgery and chemotherapy who was on 72.5 mg twice a day was recently admitted in the hospital for cholecystectomy. Prior to the surgery epochs Lizzy was discontinued and the patient stayed in the hospital after surgery for 6 days epochs of and was not started. Patient was discharged on 10/28/2018 and did not start taking Effexor and until 1 dose on Wednesday emergency room record. However patient's daughter and patient herself reported to me that she did not take any epochs of and after return from the hospital although she wanted to take the medicine on Wednesday which was warmed after she came from hospital but she forgot about it. She developed a sudden episode of right-sided weakness involving right upper extremity more so than the right lower extremity associated with difficulty speaking. She was able to understand what is spoken to her but could not get the words out. She came to the hospital with onset of symptoms within one hr, however it was decided that she was not a candidate for TPA. by teleneurologist. Patient was admitted for further workup and continuation of care. Workup including CT scan of the brain did not show any acute abnormality or any infarct. MRI of the brain and MRA of the intracranial vessels did not show any abnormality. The echocardiogram and carotid ultrasound did not show any abnormality. Patient's lipid profile was normal. Physical examination. Patient is alert and appropriate has insight into her condition and answers questions appropriately. Heart. Normal rate and rhythm Carotid. No palpable, no bruit. Cranial nerves. There is no facial asymmetry extraocular movement was intact there's no asymmetry of facial sensation other cranial nerves were within normal limit. Motor. Patient did not have any pronator drift strength in both upper extremities were normal and there is no asymmetry of strength. Right lower extremity showed some decreased mobility, however it was due to the surgery that she had on right tibia for removal of the myeloma. Reflexes. There is no asymmetry of reflexes with downgoing toes bilaterally. Sensory. Patient had decreased sensation in both lower extremities however it was symmetric. Impression. Acute right sided weakness and associated with aphasia most likely due to ischemia in the distribution of left cerebral artery. CT scan and MRI did not show any infarct and the symptoms also resolved within a few hours. There is no residual symptoms. Recommendation. Patient's medication shows that she is currently on eliquis 2.5mg qd and aspirin 350mg qd. Her medications will be changed to Apixaban 2.5mg po bid, aspirin should be discontinued. Patient was also not take Percocet for her pain as her pain is sufficiently controlled by Lyrica. Continue following dietary recommendations that I made to the patient including the daughter.
--- NOTE | 2018-10-31 14:23 | Consultation ---
History of Present Illness Consult date: 10/31/18 Requesting physician: DE DONATO Consult reason: atrial fibrillation History of present illness: Ms. Brown is a 73 y/o female admitted after a TIA and atrial fibrillation with RVR. She is previously unknown to our practice. She has a history of DVT (on Eliquis), hypertension and multiple myeloma. Per her daughter at bedside, the patient experienced lightheadedness and right-sided facial and arm weakness, but the episode resolved after about 20 minutes. She was discharged last week from [facility] after gall bladder surgery, and her Eliquis was on hold and not yet restarted. The daughter reports that the atrial fibrillation is fairly new, stating that it may have started after treatment for multiple myeloma in April. CT, MRI and MRA were NAF. The patient states she now feels as if she is back to her baseline level of functioning. She is currently in atrial fibrillation with rates in the 120s. An echocardiogram on 10/31/18 found an EF of 45 to 50 percent, moderate TR, mildly dilated RA and a normal bubble study. Past History Past Medical History: arthritis, diabetes, DVT, hypertension, other (Neuropathy) Past Surgical History: No surgical history, Other (Reviewed) Social history: , Lives alone. denies: smoking, alcohol abuse Family history: diabetes, hypertension Medications and Allergies Allergies Allergy/AdvReac Type Severity Reaction Status Date / Time No Known Allergies Allergy Verified 10/30/18 16:34 Home Medications Medication Instructions Recorded Confirmed Last Taken Type AtorvaSTATin [Lipitor] 20 mg PO DAILY 01/29/16 10/30/18 10/29/18 History Linagliptin [Tradjenta] 5 mg PO QDAY 01/29/16 10/30/18 10/29/18 History Metoprolol-HCTZ 100-50 mg TAB 1 tab PO DAILY 01/29/16 10/30/18 10/29/18 History Mv-Mn/Iron/Folic Acid/Herb 190 1 tab PO DAILY 01/29/16 10/30/18 10/29/18 History [Vitamin D3 Complete Caplet] NIFEdipine [Nifedipine ER] 30 mg PO DAILY 01/29/16 10/30/18 10/29/18 History [place]-3 Fatty Acids [[place]-3] 1 tab PO DAILY 01/29/16 10/30/18 10/29/18 History Vitamin B Complex 1 tab PO DAILY 01/29/16 10/30/18 10/29/18 History Apixaban [Eliquis] 2.5 mg PO DAILY 10/30/18 10/30/18 10/29/18 History DULoxetine [Cymbalta] 30 mg PO BID 10/31/18 10/31/18 10/30/18 09:00 History Active Meds: Active Medications Acetaminophen (Tylenol) 650 mg PO Q4H PRN PRN Reason: Pain, Mild (1-3) Albuterol (Proventil) 2.5 mg IH Q3H PRN PRN Reason: Shortness Of Breath Apixaban (Eliquis) 2.5 mg PO DAILY [facility]; Protocol Last Admin: 10/31/18 09:08 Dose: 2.5 mg Documented by: Aspirin (Aspirin) 325 mg PO QDAY [facility] Last Admin: 10/31/18 09:08 Dose: 325 mg Documented by: Atorvastatin Calcium (Lipitor) 20 mg PO QHS [facility] Bisacodyl (Dulcolax) 10 mg [place] QDAY PRN PRN Reason: Constipation Duloxetine HCl (Cymbalta) 30 mg PO BID [facility] Hydrochlorothiazide (Hctz) 50 mg PO QDAY [facility] Ceftriaxone Sodium (Rocephin/Ns 1 Gm/50 Ml) 1 gm in 50 mls @ 100 mls/hr IV Q24HR [facility]; Protocol Last Admin: 10/31/18 13:16 Dose: 100 mls/hr Documented by: Linagliptin (Tradjenta) 5 mg PO QDAY [facility] Magnesium Hydroxide (Milk Of Magnesia) 30 ml PO Q4H PRN PRN Reason: Constipation Metoclopramide HCl (Reglan) 10 mg PO Q6H PRN PRN Reason: Nausea And Vomiting Metoprolol Tartrate (Lopressor) 100 mg PO DAILY [facility] Morphine Sulfate (Morphine) 2 mg IV Q4H PRN PRN Reason: Pain, Moderate (4-6) Last Admin: 10/31/18 04:27 Dose: 2 mg Documented by: Nifedipine (Procardia Xl) 30 mg PO DAILY [facility] Ondansetron HCl (Zofran) 4 mg IV Q8H PRN PRN Reason: Nausea And Vomiting Last Admin: 10/31/18 05:27 Dose: 4 mg Documented by: Promethazine HCl (Phenergan) 25 mg [place] Q6H PRN PRN Reason: Nausea And Vomiting Sodium Chloride (Sodium Chloride Flush Syringe 10 Ml) 10 ml IV PRN PRN PRN Reason: LINE FLUSH Review of Systems All systems: negative Cardiovascular: rapid/irregular heart beat Physical Examination Vital Signs Pulse Ox 100 10/30/18 16:08 General appearance: no acute distress HEENT: Positive: PERRL Neck: Positive: neck supple Cardiac: Positive: irregularly irregular Lungs: Positive: Normal Exam Neuro: Positive: Grossly Intact Abdomen: Positive: Unremarkable Female genitourinary: deferred Skin: Positive: Clear Musculoskeletal: Normal Range of Motion Extremities: Present: normal Results 10/30/18 16:13 10/30/18 16:13 Cardiac Enzymes 10/30/18 Range/Units 16:13 AST 17 (5-40) units/L Coagulation 10/30/18 Range/Units 16:25 PT 15.3 H (12.2-14.9) Sec. INR 1.24 H (0.87-1.13) APTT 30.3 (24.2-36.6) Sec. Lipids 10/31/18 Range/Units 06:46 Triglycerides 93 (2-149) mg/dL Cholesterol 119 (50-199) mg/dL HDL Cholesterol 67 H (40-59) mg/dL Cholesterol/HDL Ratio 1.77 % CBC 10/30/18 Range/Units 16:13 WBC 12.2 H (4.5-11.0) K/mm3 RBC 6.07 H (3.65-5.03) M/mm3 Hgb 15.6 H (10.1-14.3) gm/dl Hct 48.2 H (30.3-42.9) % Plt Count 247 (140-440) K/mm3 Lymph # 1.2 (1.2-5.4) K/mm3 [place] # 1.3 H (0.0-0.8) K/mm3 Eos # 0.1 (0.0-0.4) K/mm3 Baso # 0.1 (0.0-0.1) K/mm3 Comprehensive Metabolic Panel 10/30/18 Range/Units 16:13 Sodium 139 (137-145) mmol/L Potassium 3.3 L (3.6-5.0) mmol/L Chloride 99.9 (98-107) mmol/L Carbon Dioxide 22 (22-30) mmol/L BUN 9 (7-17) mg/dL Creatinine 0.8 (0.7-1.2) mg/dL Glucose 93 (65-100) mg/dL Calcium 7.4 L (8.4-10.2) mg/dL AST 17 (5-40) units/L ALT 12 (7-56) units/L Alkaline Phosphatase 99 (35-129) units/L Total Protein 7.1 (6.3-8.2) g/dL Albumin 3.6 L (3.9-5) g/dL - Imaging and Cardiology Echo: report reviewed (10/31/18: EF 45-50%, mildly dilated RA, mod TR) EKG interpretations - Telemetry EKG Rhythm: Atrial Fibrillation Assessment and Plan Ms. Brown is a 73 y/o female admitted after a TIA. She has a history of DVT, hypertension, diabetes and multiple myeloma. As head/brain imaging negative, will resume Eliquis at home dose. Will also discontinue Procardia and initiate diltiazem for rate control. Continue other cardiac management. The patient has been seen in conjunction with Dr. Gomez, who agrees with assessment and plan. - Patient Problems (1) TIA (transient ischemic attack) Current Visit: Yes Status: Acute (2) Atrial fibrillation with RVR Current Visit: Yes Status: Acute (3) Diabetes Current Visit: Yes Status: Chronic (4) HTN (hypertension) Current Visit: Yes Status: Chronic Qualifiers: Hypertension type: essential hypertension Qualified Code(s): I10 - Essential (primary) hypertension (5) DVT, bilateral lower limbs Current Visit: No Status: Chronic Qualifiers: Affected thrombotic vein of extremity: popliteal Chronicity: acute Qualified Code(s): I82.433 - Acute embolism and thrombosis of popliteal vein, bilateral (6) Morbid obesity Current Visit: No Status: Chronic
--- NOTE | 2018-10-31 14:27 | Progress Note ---
Objective - Vital Signs Vital Signs - 12hr 10/31/18 10/31/18 10/31/18 03:58 04:01 04:27 Temperature 98.5 F Pulse Rate 125 H Respiratory 18 18 Rate Blood Pressure 139/86 O2 Sat by Pulse 96 Oximetry 10/31/18 10/31/18 07:37 10:13 Temperature 98.5 F Pulse Rate 123 H 123 H Respiratory 18 Rate Blood Pressure 126/71 O2 Sat by Pulse 96 Oximetry - Labs Result Diagrams: 10/30/18 16:13 10/30/18 16:13 Abnormal lab results 10/30/18 10/30/18 10/30/18 Range/Units 16:13 16:13 16:13 WBC 12.2 H (4.5-11.0) K/mm3 RBC 6.07 H (3.65-5.03) M/mm3 Hgb 15.6 H (10.1-14.3) gm/dl Hct 48.2 H (30.3-42.9) % MCH 26 L (28-32) pg RDW 19.9 H (13.2-15.2) % Lymph % (Auto) 9.7 L (13.4-35.0) % [place] % (Auto) 10.3 H (0.0-7.3) % [place] # 1.3 H (0.0-0.8) K/mm3 Seg Neutrophils % 78.7 H (40.0-70.0) % Seg Neutrophils # 9.6 H (1.8-7.7) K/mm3 PT (12.2-14.9) Sec. INR (0.87-1.13) Potassium 3.3 L (3.6-5.0) mmol/L Calcium 7.4 L (8.4-10.2) mg/dL Magnesium 1.50 L (1.7-2.3) mg/dL Albumin 3.6 L (3.9-5) g/dL HDL Cholesterol (40-59) mg/dL Urine WBC (Auto) (0.0-6.0) /HPF U Epithel Cells (Auto) (0-13.0) /HPF 10/30/18 10/30/18 10/31/18 Range/Units 16:25 18:11 06:46 WBC (4.5-11.0) K/mm3 RBC (3.65-5.03) M/mm3 Hgb (10.1-14.3) gm/dl Hct (30.3-42.9) % MCH (28-32) pg RDW (13.2-15.2) % Lymph % (Auto) (13.4-35.0) % [place] % (Auto) (0.0-7.3) % [place] # (0.0-0.8) K/mm3 Seg Neutrophils % (40.0-70.0) % Seg Neutrophils # (1.8-7.7) K/mm3 PT 15.3 H (12.2-14.9) Sec. INR 1.24 H (0.87-1.13) Potassium (3.6-5.0) mmol/L Calcium (8.4-10.2) mg/dL Magnesium (1.7-2.3) mg/dL Albumin (3.9-5) g/dL HDL Cholesterol 67 H (40-59) mg/dL Urine WBC (Auto) 12.0 H (0.0-6.0) /HPF U Epithel Cells (Auto) 16.0 H (0-13.0) /HPF Diabetes panel 10/30/18 10/31/18 Range/Units 16:13 06:46 Sodium 139 (137-145) mmol/L Potassium 3.3 L (3.6-5.0) mmol/L Chloride 99.9 (98-107) mmol/L Carbon Dioxide 22 (22-30) mmol/L BUN 9 (7-17) mg/dL Creatinine 0.8 (0.7-1.2) mg/dL Glucose 93 (65-100) mg/dL Calcium 7.4 L (8.4-10.2) mg/dL AST 17 (5-40) units/L ALT 12 (7-56) units/L Alkaline Phosphatase 99 (35-129) units/L Total Protein 7.1 (6.3-8.2) g/dL Albumin 3.6 L (3.9-5) g/dL Triglycerides 93 (2-149) mg/dL HDL Cholesterol 67 H (40-59) mg/dL Calcium panel 10/30/18 Range/Units 16:13 Calcium 7.4 L (8.4-10.2) mg/dL Albumin 3.6 L (3.9-5) g/dL Pituitary panel 10/30/18 Range/Units 16:13 Sodium 139 (137-145) mmol/L Potassium 3.3 L (3.6-5.0) mmol/L Chloride 99.9 (98-107) mmol/L Carbon Dioxide 22 (22-30) mmol/L BUN 9 (7-17) mg/dL Creatinine 0.8 (0.7-1.2) mg/dL Glucose 93 (65-100) mg/dL Calcium 7.4 L (8.4-10.2) mg/dL Adrenal panel 10/30/18 Range/Units 16:13 Sodium 139 (137-145) mmol/L Potassium 3.3 L (3.6-5.0) mmol/L Chloride 99.9 (98-107) mmol/L Carbon Dioxide 22 (22-30) mmol/L BUN 9 (7-17) mg/dL Creatinine 0.8 (0.7-1.2) mg/dL Glucose 93 (65-100) mg/dL Calcium 7.4 L (8.4-10.2) mg/dL Total Bilirubin 0.80 (0.1-1.2) mg/dL AST 17 (5-40) units/L ALT 12 (7-56) units/L Alkaline Phosphatase 99 (35-129) units/L Total Protein 7.1 (6.3-8.2) g/dL Albumin 3.6 L (3.9-5) g/dL All other labs normal.
--- NOTE | 2018-10-31 17:12 | Progress Note ---
Subjective Date of service: 10/31/18 Interval history: follow uo note both the MRI and MRA are normal to my view and formal interpretation... therefore no other explanation for TIA other than atrial fib since on eliquis before recommend restart provided no bleeding at site of the gall bladder surgery- I am a little unfamiliar with the interval for restart of NCOAC class post GB surgery Objective - Vital Sign Vital Signs - 12hr 10/31/18 10/31/18 07:37 10:13 Temperature 98.5 F Pulse Rate 123 H 123 H Respiratory 18 Rate Blood Pressure 126/71 O2 Sat by Pulse 96 Oximetry - Laboratory Findings CBC and BMP: 10/30/18 16:13 10/30/18 16:13 Abnormal Lab Findings: Abnormal Labs 10/30/18 10/30/18 10/30/18 16:13 16:13 16:13 WBC 12.2 H RBC 6.07 H Hgb 15.6 H Hct 48.2 H MCH 26 L RDW 19.9 H Lymph % (Auto) 9.7 L [place] % (Auto) 10.3 H [place] # 1.3 H Seg Neutrophils % 78.7 H Seg Neutrophils # 9.6 H PT INR Potassium 3.3 L Calcium 7.4 L Magnesium 1.50 L Albumin 3.6 L HDL Cholesterol Urine WBC (Auto) U Epithel Cells (Auto) 10/30/18 10/30/18 10/31/18 16:25 18:11 06:46 WBC RBC Hgb Hct MCH RDW Lymph % (Auto) [place] % (Auto) [place] # Seg Neutrophils % Seg Neutrophils # PT 15.3 H INR 1.24 H Potassium Calcium Magnesium Albumin HDL Cholesterol 67 H Urine WBC (Auto) 12.0 H U Epithel Cells (Auto) 16.0 H
[2018-10-31] MEDS: CYMBALTA PO SCH (22:07)
[2018-10-31] MEDS: CARDIZEM PO SCH (22:07)
--- NOTE | 2018-11-01 07:50 | Progress Note ---
Subjective Date of service: 11/01/18 Interval history: ECHO was reviewed and is as noted no visible clot OK to discharge will follow up in office see my prior note about MRI and MRA appears thee was TIA producing aphasia Objective - Vital Sign Vital Signs - 12hr 10/31/18 11/01/18 11/01/18 20:37 00:00 04:00 Temperature 97.9 F 98.2 F Pulse Rate 114 H 123 H 121 H Respiratory 18 18 Rate Blood Pressure 117/70 117/68 [Right] O2 Sat by Pulse 94 96 Oximetry - Laboratory Findings CBC and BMP: 10/30/18 16:13 10/30/18 16:13 Abnormal Lab Findings: Abnormal Labs 10/30/18 10/30/18 10/30/18 16:13 16:13 16:13 WBC 12.2 H RBC 6.07 H Hgb 15.6 H Hct 48.2 H MCH 26 L RDW 19.9 H Lymph % (Auto) 9.7 L [place] % (Auto) 10.3 H [place] # 1.3 H Seg Neutrophils % 78.7 H Seg Neutrophils # 9.6 H PT INR Potassium 3.3 L Calcium 7.4 L Magnesium 1.50 L Albumin 3.6 L HDL Cholesterol Urine WBC (Auto) U Epithel Cells (Auto) 10/30/18 10/30/18 10/31/18 16:25 18:11 06:46 WBC RBC Hgb Hct MCH RDW Lymph % (Auto) [place] % (Auto) [place] # Seg Neutrophils % Seg Neutrophils # PT 15.3 H INR 1.24 H Potassium Calcium Magnesium Albumin HDL Cholesterol 67 H Urine WBC (Auto) 12.0 H U Epithel Cells (Auto) 16.0 H
--- NOTE | 2018-11-01 07:54 | Progress Note ---
Subjective Date of service: 11/01/18 Interval history: the EEG is normal and the MRI shows only age relayed changes she may be discharged and follow up in the offce syuspect benign process not stroke Objective - Vital Sign Vital Signs - 12hr 10/31/18 11/01/18 11/01/18 20:37 00:00 04:00 Temperature 97.9 F 98.2 F Pulse Rate 114 H 123 H 121 H Respiratory 18 18 Rate Blood Pressure 117/70 117/68 [Right] O2 Sat by Pulse 94 96 Oximetry - Laboratory Findings CBC and BMP: 10/30/18 16:13 10/30/18 16:13 Abnormal Lab Findings: Abnormal Labs 10/30/18 10/30/18 10/30/18 16:13 16:13 16:13 WBC 12.2 H RBC 6.07 H Hgb 15.6 H Hct 48.2 H MCH 26 L RDW 19.9 H Lymph % (Auto) 9.7 L [place] % (Auto) 10.3 H [place] # 1.3 H Seg Neutrophils % 78.7 H Seg Neutrophils # 9.6 H PT INR Potassium 3.3 L Calcium 7.4 L Magnesium 1.50 L Albumin 3.6 L HDL Cholesterol Urine WBC (Auto) U Epithel Cells (Auto) 10/30/18 10/30/18 10/31/18 16:25 18:11 06:46 WBC RBC Hgb Hct MCH RDW Lymph % (Auto) [place] % (Auto) [place] # Seg Neutrophils % Seg Neutrophils # PT 15.3 H INR 1.24 H Potassium Calcium Magnesium Albumin HDL Cholesterol 67 H Urine WBC (Auto) 12.0 H U Epithel Cells (Auto) 16.0 H
[2018-11-01] MEDS: ASPIRIN PO SCH ×2 (09:33→10:00)
[2018-11-01] MEDS: ELIQUIS PO SCH (09:33)
[2018-11-01] MEDS: LOPRESSOR PO SCH (09:33)
[2018-11-01] MEDS: CYMBALTA PO SCH ×2 (09:33→21:26)
[2018-11-01] MEDS: CARDIZEM PO SCH ×3 (09:33→21:25)
[2018-11-01] MEDS: TRADJENTA PO SCH (09:34)
[2018-11-01] MEDS: ROCEPHIN/NS 1 GM/50 ML 1 GM/50 ML BAG IV SCH (09:37)
[2018-11-01] MEDS ORDERED: HCTZ PO SCH (10:00)
[2018-11-01] MEDS ORDERED: PROCARDIA XL PO SCH (10:00)
[2018-11-01] MEDS ORDERED: METOPROLOL HCTZ PO SCH (10:00)
[2018-11-01 10:23] LABS: BUN/Creatinine Ratio 14; Blood Urea Nitrogen 11 mg/dL (7-17); Calcium 7.2 mg/dL (8.4-10.2); Hemolysis Index 15
[2018-11-01] MEDS ORDERED: K-DUR PO NR (10:33)
--- NOTE | 2018-11-01 10:35 | Progress Note ---
Assessment and Plan Patient remains in atrial fibrillation/atrial flutter with RVR - will obtain EKG to confirm rhythm. Will increase diltiazem to 30 mg TID and closely monitor blood pressure. Will replete potassium and consider digoxin if rate still not controlled. If rate control unsuccessful with medication, will schedule ISAMAR/cardioversion, likely on if necessary. The patient has been seen in conjunction with Dr. Gomez, who agrees with assessment and plan. - Patient Problems (1) Atrial fibrillation/flutter Current Visit: Yes Status: Acute (2) TIA (transient ischemic attack) Current Visit: Yes Status: Acute (3) Diabetes Current Visit: Yes Status: Chronic (4) HTN (hypertension) Current Visit: Yes Status: Chronic Qualifiers: Hypertension type: essential hypertension Qualified Code(s): I10 - Essential (primary) hypertension (5) DVT, bilateral lower limbs Current Visit: No Status: Chronic Qualifiers: Affected thrombotic vein of extremity: popliteal Chronicity: acute Qualified Code(s): I82.433 - Acute embolism and thrombosis of popliteal vein, bilateral (6) Morbid obesity Current Visit: No Status: Chronic Subjective Date of service: 11/01/18 Interval history: Patient sitting in bed in [facility]. She remains in atrial fibrillation/atrial flutter with rates in the 120s. Objective Last Vital Signs Temp 97.9 F 11/01/18 08:01 Pulse 122 H 11/01/18 08:01 Resp 18 11/01/18 08:01 BP 118/70 11/01/18 08:01 Pulse Ox 99 11/01/18 08:01 - Physical Examination General: No Apparent Distress HEENT: Positive: PERRL Neck: Positive: neck supple Cardiac: Positive: irregularly irregular Lungs: Positive: Normal Exam Neuro: Positive: Grossly Intact Abdomen: Positive: Unremarkable Skin: Positive: Clear Musculoskeletal: Normal Range of Motion Extremities: Present: normal - Labs and Meds Comprehensive Metabolic Panel 11/01/18 Range/Units 09:40 Sodium 142 (137-145) mmol/L Potassium 3.4 L (3.6-5.0) mmol/L Chloride 103.9 (98-107) mmol/L Carbon Dioxide 23 (22-30) mmol/L BUN 11 (7-17) mg/dL Creatinine 0.8 (0.7-1.2) mg/dL Glucose 116 H (65-100) mg/dL Calcium 7.2 L (8.4-10.2) mg/dL - Imaging and Cardiology Echo: report reviewed (10/31/18: EF 45-50%, mildly dilated RA, mod TR) - Telemetry EKG Rhythm: Atrial Flutter
[2018-11-01 10:43] LABS: Hematocrit 45.1 % (30.3-42.9); Hemoglobin 14.6 gm/dl (10.1-14.3); Mean Corpuscular HGB Conc 33 % (30-34); Mean Corpuscular Volume 79 fl (79-97); Platelet Count 232 K/mm3 (140-440); Red Blood Count 5.71 M/mm3 (3.65-5.03); Red Cell Distribution Width 19.9 % (13.2-15.2)
--- NOTE | 2018-11-01 10:53 | Progress Note ---
Assessment and Plan Assessment and plan: TIA. Patient reports what sounds like expressive aphasia that has now resolved. Carotid Doppler revealed less than 50% stenosis bilaterally. CT scan of head negative. Neurology consult. Atrial fibrillation with RVR. Daughter reports new diagnosis occurring this year but has not seen a preschool director as of yet. Rate is not controlled. Continue anticoagulation. Cardiology following For ISAMAR and cardioversion on 11/03/18 if she remains rapid afib History of bilateral lower extremity DVT. Patient was on Eliquis as outpatient. However, it was held due to gallbladder surgery possibly one week ago. We are unsure when the medication was resumed. Multiple Myeloma. Dx Apr 2018. Followed by Dr. Flannery at [place]. SIRS. Continue empiric antibiotics. OHS/HAO. Continue supportive care. O2 Morbid obesity. Patient has been counseled on balanced diet and increase physical activity at discharge. Hypertension. Continue antihypertensive medications. Diabetes mellitus type 2. Continue Accu-Cheks and sliding scale insulin. History Interval history: Palpitations No chest pain Hospitalist Physical - Physical exam Narrative exam: Gen: Not in acute distress, lying in bed, morbidly obese HEENT: Normocephalic, atraumatic Neck: supple, no JVD Heart: S1 and S2 irreg, irreg rapid,no murmurs, rubs or gallop Lungs: Clear, no crackles, no rhonchi Abd: soft, non tender, non distended, normal BS, Ext: No edema, no clubbing, no cyanosis Neuro: Awake,alert, Oriented X 3. No focal neuro signs Psych: normal mood - Constitutional Vitals: Temp Pulse Resp BP Pulse Ox 97.9 F 122 H 18 118/70 99 11/01/18 08:01 11/01/18 08:01 11/01/18 08:01 11/01/18 08:01 11/01/18 08:01 General appearance: Present: no acute distress Results - Labs CBC & Chem 7: 11/01/18 09:40 11/01/18 09:40 Labs: Laboratory Last Values WBC 7.8 K/mm3 (4.5-11.0) 11/01/18 09:40 RBC 5.71 M/mm3 (3.65-5.03) H 11/01/18 09:40 Hgb 14.6 gm/dl (10.1-14.3) H 11/01/18 09:40 Hct 45.1 % (30.3-42.9) H 11/01/18 09:40 MCV 79 fl (79-97) 11/01/18 09:40 MCH 26 pg (28-32) L 11/01/18 09:40 MCHC 33 % (30-34) 11/01/18 09:40 RDW 19.9 % (13.2-15.2) H 11/01/18 09:40 Plt Count 232 K/mm3 (140-440) 11/01/18 09:40 Lymph % (Auto) 9.7 % (13.4-35.0) L 10/30/18 16:13 [place] % (Auto) 10.3 % (0.0-7.3) H 10/30/18 16:13 Eos % (Auto) 0.7 % (0.0-4.3) 10/30/18 16:13 Baso % (Auto) 0.6 % (0.0-1.8) 10/30/18 16:13 Lymph # 1.2 K/mm3 (1.2-5.4) 10/30/18 16:13 [place] # 1.3 K/mm3 (0.0-0.8) H 10/30/18 16:13 Eos # 0.1 K/mm3 (0.0-0.4) 10/30/18 16:13 Baso # 0.1 K/mm3 (0.0-0.1) 10/30/18 16:13 Seg Neutrophils % 78.7 % (40.0-70.0) H 10/30/18 16:13 Seg Neutrophils # 9.6 K/mm3 (1.8-7.7) H 10/30/18 16:13 PT 15.3 Sec. (12.2-14.9) H 10/30/18 16:25 INR 1.24 (0.87-1.13) H 10/30/18 16:25 APTT 30.3 Sec. (24.2-36.6) 10/30/18 16:25 17.6 Sec. (15.1-19.6) 10/30/18 16:26 Sodium 142 mmol/L (137-145) 11/01/18 09:40 Potassium 3.4 mmol/L (3.6-5.0) L 11/01/18 09:40 Chloride 103.9 mmol/L (98-107) 11/01/18 09:40 Carbon Dioxide 23 mmol/L (22-30) 11/01/18 09:40 19 mmol/L 11/01/18 09:40 BUN 11 mg/dL (7-17) 11/01/18 09:40 0.8 mg/dL (0.7-1.2) 11/01/18 09:40 Estimated GFR > 60 ml/min 11/01/18 09:40 14 % 11/01/18 09:40 Glucose 116 mg/dL (65-100) H 11/01/18 09:40 POC Glucose 83 (70-105) 10/31/18 12:38 Calcium 7.2 mg/dL (8.4-10.2) L 11/01/18 09:40 Magnesium 1.50 mg/dL (1.7-2.3) L 11/01/18 09:40 0.80 mg/dL (0.1-1.2) 10/30/18 16:13 AST 17 units/L (5-40) 10/30/18 16:13 ALT 12 units/L (7-56) 10/30/18 16:13 99 units/L (35-129) 10/30/18 16:13 < 0.010 ng/mL (0.00-0.029) 10/30/18 16:26 7.1 g/dL (6.3-8.2) 10/30/18 16:13 3.6 g/dL (3.9-5) L 10/30/18 16:13 1.0 % 10/30/18 16:13 Triglycerides 93 mg/dL (2-149) 10/31/18 06:46 Cholesterol 119 mg/dL (50-199) 10/31/18 06:46 51 mg/dL (50-130) 10/31/18 06:46 67 mg/dL (40-59) H 10/31/18 06:46 1.77 % 10/31/18 06:46 Maryann (Yellow) 10/30/18 18:11 Slightly-cloudy (Clear) 10/30/18 18:11 5.0 (5.0-7.0) 10/30/18 18:11 Ur Specific [place] 1.024 (1.003-1.030) 10/30/18 18:11 30 mg/dl mg/dL (Negative) 10/30/18 18:11 Neg mg/dL (Negative) 10/30/18 18:11 20 mg/dL (Negative) 10/30/18 18:11 Neg (Negative) 10/30/18 18:11 Neg (Negative) 10/30/18 18:11 Neg (Negative) 10/30/18 18:11 2.0 mg/dL (<2.0) 10/30/18 18:11 Ur Leukocyte Esterase Sm (Negative) 10/30/18 18:11 12.0 /HPF (0.0-6.0) H 10/30/18 18:11 < 1.0 /HPF (0.0-6.0) 10/30/18 18:11 U Epithel Cells (Auto) 16.0 /HPF (0-13.0) H 10/30/18 18:11 Ur Yeast w Hyphae Few /HPF 10/30/18 18:11 3+ /HPF 10/30/18 18:11 Active Medications - Current Medications Current Medications: Generic Name Dose Route Start Last Admin Trade Name Freq PRN Reason Stop Dose Admin Acetaminophen 650 mg 10/30/18 18:12 Tylenol PO Q4H PRN Pain, Mild (1-3) Albuterol 2.5 mg 10/30/18 18:12 Proventil IH Q3H PRN Shortness Of Breath Apixaban 2.5 mg 10/31/18 10:00 11/01/18 09:33 Eliquis PO 2.5 mg DAILY BEA Administration Protocol Aspirin 325 mg 10/31/18 10:00 11/01/18 10:00 Aspirin PO 325 mg QDAY BEA Administration Atorvastatin Calcium 20 mg 10/31/18 22:00 10/31/18 22:07 Lipitor PO 20 mg QHS BEA Administration Bisacodyl 10 mg 10/30/18 18:12 Dulcolax [place] QDAY PRN Constipation Diltiazem HCl 30 mg 11/01/18 14:00 Cardizem PO TID BEA Duloxetine HCl 30 mg 10/31/18 22:00 11/01/18 09:33 Cymbalta PO 30 mg BID BEA Administration Hydrochlorothiazide 50 mg 11/01/18 10:00 11/01/18 09:33 Hctz PO 50 mg QDAY BEA Administration Ceftriaxone Sodium 1 gm in 50 mls @ 100 mls/hr 10/30/18 19:18 11/01/18 09:37 Rocephin/Ns 1 Gm/50 Ml IV 100 mls/hr Q24HR BEA Administration Protocol Linagliptin 5 mg 11/01/18 10:00 11/01/18 09:34 Tradjenta PO 5 mg QDAY BEA Administration Magnesium Hydroxide 30 ml 10/30/18 18:12 Milk Of Magnesia PO Q4H PRN Constipation Metoclopramide HCl 10 mg 10/30/18 18:12 Reglan PO Q6H PRN Nausea And Vomiting Metoprolol Tartrate 100 mg 11/01/18 10:00 11/01/18 09:33 Lopressor PO 100 mg DAILY BEA Administration Morphine Sulfate 2 mg 10/31/18 04:11 10/31/18 04:27 Morphine IV 2 mg Q4H PRN Administration Pain, Moderate (4-6) Ondansetron HCl 4 mg 10/30/18 18:12 10/31/18 05:27 Zofran IV 4 mg Q8H PRN Administration Nausea And Vomiting Potassium Chloride 40 meq 11/01/18 10:33 K-Dur PO 11/01/18 11:30 ONCE NR Promethazine HCl 25 mg 10/30/18 18:12 Phenergan [place] Q6H PRN Nausea And Vomiting Sodium Chloride 10 ml 10/30/18 18:12 Sodium Chloride Flush Syringe 10 Ml IV PRN PRN LINE FLUSH Nutrition/Malnutrition Assess - Dietary Evaluation Nutrition/Malnutrition Findings: Nutrition Notes Start: 10/31/18 15:05 Freq: Status: Active Protocol: Document 10/31/18 15:05 OH (Rec: 10/31/18 15:18 OH [id number]) Nutrition Notes Need for Assessment generated from: MD Order Initial or Follow up Assessment Current Diagnosis Diabetes,Hypertension Other Pertinent Diagnosis morbid obesity; TIA Current Diet cardiac Labs/Tests alb 3.6 Pertinent Medications Reviewed Height 5 ft 5 in Weight 115.3 kg [place] Body Weight (kg) 56.81 BMI 42.3 Intake Prior to Admission Good Weight Status Morbidly Obese Subjective/Other Information Pt. reports she or daughter cook at home. She has a PCP who manages her diabetes. She is ok with supplements. 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 She admits to wt loss recently. Pt. w/hx of multiple myeloma. 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 Percent of energy/protein needs met: 40/40% Burn Absent Trauma Absent GI Symptoms None Current % PO Poor (25-49%) #1 Nutrition Diagnosis Inadequate oral intake Etiology poor appetite As Evidenced by Signs and Symptoms consuming <75% po intake EER of kcals/PRO Is patient on ventilator? No Is Patient Ambulatory and/or Out of Bed Yes REE-([place] [facility]-ambulatory/OOB) [ 2156.544 NUTR.MSJOOB] Kcal/Kg value to use for calculation 15 Approximate Energy Requirements Using 1730 kcal/Kg Calculation Used for Recommendations Kcal/kg Additional Notes FLUID: 1 mL/kcal PROTEIN 0.8-1.0 G/KG/IBW 46-57 g/day Nutrition Intervention Change Diet Order: Cont cardiac Goal #1 po intake to exceed 75% for PRO/KCALS Revisit per MD consult or patient Sign Off request:
[2018-11-02 01:18] LABS: BUN/Creatinine Ratio 14; Blood Urea Nitrogen 13 mg/dL (7-17); Calcium 7.4 mg/dL (8.4-10.2); Hemolysis Index 9
[2018-11-02 05:13] LABS: BUN/Creatinine Ratio 15; Blood Urea Nitrogen 12 mg/dL (7-17); Calcium 7.3 mg/dL (8.4-10.2); Hemolysis Index 10
[2018-11-02] MEDS ORDERED: K-DUR PO ONE (10:00)
--- NOTE | 2018-11-02 10:47 | Progress Note ---
Assessment and Plan The patient remains in atrial flutter with RVR. Attempts to lower HR with medication have been unsuccessful - we are limited by borderline blood pressures as well as a low potassium level that is a contraindication to digoxin at this time. Will replete potassium and stop HCTZ for now. She is scheduled for a ISAMAR/cardioversion tomorrow at 0830, which was discussed with her daughter over the phone. Explained risks and benefits of procedures and patient agrees wto proceed. Further recommendations pending hospital course. The patient has been seen in conjunction with Dr. Gomez, who agrees with the assessment and plan. - Patient Problems (1) Atrial fibrillation/flutter Current Visit: Yes Status: Acute (2) TIA (transient ischemic attack) Current Visit: Yes Status: Acute (3) Diabetes Current Visit: Yes Status: Chronic (4) HTN (hypertension) Current Visit: Yes Status: Chronic Qualifiers: Hypertension type: essential hypertension Qualified Code(s): I10 - Essential (primary) hypertension (5) DVT, bilateral lower limbs Current Visit: No Status: Chronic Qualifiers: Affected thrombotic vein of extremity: popliteal Chronicity: acute Qualified Code(s): I82.433 - Acute embolism and thrombosis of popliteal vein, bilateral (6) Morbid obesity Current Visit: No Status: Chronic Subjective Date of service: 11/02/18 Interval history: Patient lying in bed in NAD. She remains in atrial flutter with RVR. Objective Last Vital Signs Temp 98.1 F 11/02/18 07:58 Pulse 118 H 11/02/18 07:58 Resp 20 11/02/18 07:58 BP 136/86 11/02/18 07:58 Pulse Ox 96 11/02/18 07:58 - Physical Examination General: No Apparent Distress HEENT: Positive: PERRL Neck: Positive: neck supple Cardiac: Positive: irregularly irregular Lungs: Positive: clear to auscultation Neuro: Positive: Grossly Intact Abdomen: Positive: Unremarkable /Rectal: Urinary Diversion (deferred) Skin: Positive: Clear Musculoskeletal: Normal Range of Motion Extremities: Present: normal - Labs and Meds Comprehensive Metabolic Panel 11/02/18 11/02/18 Range/Units 00:22 03:52 Sodium 145 146 H (137-145) mmol/L Potassium 3.3 L 3.3 L (3.6-5.0) mmol/L Chloride 105.9 105.5 (98-107) mmol/L Carbon Dioxide 23 26 (22-30) mmol/L BUN 13 12 (7-17) mg/dL Creatinine 0.9 0.8 (0.7-1.2) mg/dL Glucose 94 85 (65-100) mg/dL Calcium 7.4 L 7.3 L (8.4-10.2) mg/dL - Imaging and Cardiology Stress echo: report reviewed (10/31/18: EF 36%, cannot r/o ) Echo: report reviewed (10/31/18: EF 45-50%, mildly dilated RA, mod TR) - Telemetry EKG Rhythm: Atrial Flutter
[2018-11-02] MEDS: ROCEPHIN/NS 1 GM/50 ML 1 GM/50 ML BAG IV SCH (11:01)
[2018-11-02] MEDS: CYMBALTA PO SCH ×2 (11:04→21:00)
[2018-11-02] MEDS: ELIQUIS PO SCH (11:05)
[2018-11-02] MEDS: ASPIRIN PO SCH (11:05)
[2018-11-02] MEDS: LOPRESSOR PO SCH (11:06)
[2018-11-02] MEDS: TRADJENTA PO SCH (11:06)
[2018-11-02] MEDS: CARDIZEM PO SCH ×3 (11:14→21:00)
--- NOTE | 2018-11-02 12:16 | Progress Note ---
Assessment and Plan Assessment and plan: TIA. Patient reports what sounds like expressive aphasia that has now resolved. Carotid Doppler revealed less than 50% stenosis bilaterally. CT scan of head negative. Atrial fibrillation with RVR. Daughter reports new diagnosis occurring this year but has not seen a program/music director as of yet. Rate is not controlled. Continue anticoagulation. Cardiology following For ISAMAR and cardioversion tomorrow, 11/03/18 if she remains rapid afib History of bilateral lower extremity DVT. Patient was on Eliquis as outpatient. However, it was held due to gallbladder surgery possibly one week ago. We are unsure when the medication was resumed. Multiple Myeloma. Dx Apr 2018. Followed by Dr. Flannery at [place]. SIRS. Continue empiric antibiotics. OHS/HAO. Continue supportive care. O2 Morbid obesity. Patient has been counseled on balanced diet and increase physical activity at discharge. Hypertension. Continue antihypertensive medications. Diabetes mellitus type 2. Continue Accu-Cheks and sliding scale insulin. History Interval history: Palpitations, still occur No chest pain Hospitalist Physical - Physical exam Narrative exam: Gen: Not in acute distress, lying in bed, morbidly obese HEENT: Normocephalic, atraumatic Neck: supple, no JVD Heart: S1 and S2 irreg, irreg rapid,no murmurs, rubs or gallop Lungs: Clear, no crackles, no rhonchi Abd: soft, non tender, non distended, normal BS, Ext: No edema, no clubbing, no cyanosis Neuro: Awake,alert, Oriented X 3. No focal neuro signs Psych: normal mood - Constitutional Vitals: Temp Pulse Resp BP Pulse Ox 98.1 F 120 H 20 136/86 96 11/02/18 07:58 11/02/18 11:14 11/02/18 07:58 11/02/18 07:58 11/02/18 07:58 General appearance: Present: no acute distress Results - Labs CBC & Chem 7: 11/01/18 09:40 11/02/18 03:52 Labs: Laboratory Last Values WBC 7.8 K/mm3 (4.5-11.0) 11/01/18 09:40 RBC 5.71 M/mm3 (3.65-5.03) H 11/01/18 09:40 Hgb 14.6 gm/dl (10.1-14.3) H 11/01/18 09:40 Hct 45.1 % (30.3-42.9) H 11/01/18 09:40 MCV 79 fl (79-97) 11/01/18 09:40 MCH 26 pg (28-32) L 11/01/18 09:40 MCHC 33 % (30-34) 11/01/18 09:40 RDW 19.9 % (13.2-15.2) H 11/01/18 09:40 Plt Count 232 K/mm3 (140-440) 11/01/18 09:40 Lymph % (Auto) 9.7 % (13.4-35.0) L 10/30/18 16:13 [place] % (Auto) 10.3 % (0.0-7.3) H 10/30/18 16:13 Eos % (Auto) 0.7 % (0.0-4.3) 10/30/18 16:13 Baso % (Auto) 0.6 % (0.0-1.8) 10/30/18 16:13 Lymph # 1.2 K/mm3 (1.2-5.4) 10/30/18 16:13 [place] # 1.3 K/mm3 (0.0-0.8) H 10/30/18 16:13 Eos # 0.1 K/mm3 (0.0-0.4) 10/30/18 16:13 Baso # 0.1 K/mm3 (0.0-0.1) 10/30/18 16:13 Seg Neutrophils % 78.7 % (40.0-70.0) H 10/30/18 16:13 Seg Neutrophils # 9.6 K/mm3 (1.8-7.7) H 10/30/18 16:13 PT 15.3 Sec. (12.2-14.9) H 10/30/18 16:25 INR 1.24 (0.87-1.13) H 10/30/18 16:25 APTT 30.3 Sec. (24.2-36.6) 10/30/18 16:25 17.6 Sec. (15.1-19.6) 10/30/18 16:26 Sodium 146 mmol/L (137-145) H 11/02/18 03:52 Potassium 3.3 mmol/L (3.6-5.0) L 11/02/18 03:52 Chloride 105.5 mmol/L (98-107) 11/02/18 03:52 Carbon Dioxide 26 mmol/L (22-30) 11/02/18 03:52 18 mmol/L 11/02/18 03:52 BUN 12 mg/dL (7-17) 11/02/18 03:52 0.8 mg/dL (0.7-1.2) 11/02/18 03:52 Estimated GFR > 60 ml/min 11/02/18 03:52 15 % 11/02/18 03:52 Glucose 85 mg/dL (65-100) 11/02/18 03:52 POC Glucose 83 (70-105) 10/31/18 12:38 Calcium 7.3 mg/dL (8.4-10.2) L 11/02/18 03:52 Magnesium 1.50 mg/dL (1.7-2.3) L 11/01/18 09:40 0.80 mg/dL (0.1-1.2) 10/30/18 16:13 AST 17 units/L (5-40) 10/30/18 16:13 ALT 12 units/L (7-56) 10/30/18 16:13 99 units/L (35-129) 10/30/18 16:13 < 0.010 ng/mL (0.00-0.029) 10/30/18 16:26 7.1 g/dL (6.3-8.2) 10/30/18 16:13 3.6 g/dL (3.9-5) L 10/30/18 16:13 1.0 % 10/30/18 16:13 Triglycerides 93 mg/dL (2-149) 10/31/18 06:46 Cholesterol 119 mg/dL (50-199) 10/31/18 06:46 51 mg/dL (50-130) 10/31/18 06:46 67 mg/dL (40-59) H 10/31/18 06:46 1.77 % 10/31/18 06:46 Maryann (Yellow) 10/30/18 18:11 Slightly-cloudy (Clear) 10/30/18 18:11 5.0 (5.0-7.0) 10/30/18 18:11 Ur Specific [place] 1.024 (1.003-1.030) 10/30/18 18:11 30 mg/dl mg/dL (Negative) 10/30/18 18:11 Neg mg/dL (Negative) 10/30/18 18:11 20 mg/dL (Negative) 10/30/18 18:11 Neg (Negative) 10/30/18 18:11 Neg (Negative) 10/30/18 18:11 Neg (Negative) 10/30/18 18:11 2.0 mg/dL (<2.0) 10/30/18 18:11 Ur Leukocyte Esterase Sm (Negative) 10/30/18 18:11 12.0 /HPF (0.0-6.0) H 10/30/18 18:11 < 1.0 /HPF (0.0-6.0) 10/30/18 18:11 U Epithel Cells (Auto) 16.0 /HPF (0-13.0) H 10/30/18 18:11 Ur Yeast w Hyphae Few /HPF 10/30/18 18:11 3+ /HPF 10/30/18 18:11 Active Medications - Current Medications Current Medications: Generic Name Dose Route Start Last Admin Trade Name Freq PRN Reason Stop Dose Admin Acetaminophen 650 mg 10/30/18 18:12 Tylenol PO Q4H PRN Pain, Mild (1-3) Albuterol 2.5 mg 10/30/18 18:12 Proventil IH Q3H PRN Shortness Of Breath Apixaban 2.5 mg 10/31/18 10:00 11/02/18 11:05 Eliquis PO 2.5 mg DAILY BEA Administration Protocol Aspirin 325 mg 10/31/18 10:00 11/02/18 11:05 Aspirin PO 325 mg QDAY BEA Administration Atorvastatin Calcium 20 mg 10/31/18 22:00 11/01/18 21:26 Lipitor PO 20 mg QHS BEA Administration Bisacodyl 10 mg 10/30/18 18:12 Dulcolax [place] QDAY PRN Constipation Diltiazem HCl 30 mg 11/01/18 14:00 11/02/18 11:14 Cardizem PO 30 mg TID BEA Administration Duloxetine HCl 30 mg 10/31/18 22:00 11/02/18 11:04 Cymbalta PO 30 mg BID BEA Administration Ceftriaxone Sodium 1 gm in 50 mls @ 100 mls/hr 10/30/18 19:18 11/02/18 11:01 Rocephin/Ns 1 Gm/50 Ml IV 100 mls/hr Q24HR BEA Administration Protocol Linagliptin 5 mg 11/01/18 10:00 11/02/18 11:06 Tradjenta PO 5 mg QDAY BEA Administration Magnesium Hydroxide 30 ml 10/30/18 18:12 Milk Of Magnesia PO Q4H PRN Constipation Metoclopramide HCl 10 mg 10/30/18 18:12 Reglan PO Q6H PRN Nausea And Vomiting Metoprolol Tartrate 100 mg 11/01/18 10:00 11/02/18 11:06 Lopressor PO 100 mg DAILY BEA Administration Morphine Sulfate 2 mg 10/31/18 04:11 10/31/18 04:27 Morphine IV 2 mg Q4H PRN Administration Pain, Moderate (4-6) Ondansetron HCl 4 mg 10/30/18 18:12 10/31/18 05:27 Zofran IV 4 mg Q8H PRN Administration Nausea And Vomiting Promethazine HCl 25 mg 10/30/18 18:12 Phenergan [place] Q6H PRN Nausea And Vomiting Sodium Chloride 10 ml 10/30/18 18:12 Sodium Chloride Flush Syringe 10 Ml IV PRN PRN LINE FLUSH Nutrition/Malnutrition Assess - Dietary Evaluation Nutrition/Malnutrition Findings: Nutrition Notes Start: 10/31/18 15:05 Freq: Status: Active Protocol: Document 10/31/18 15:05 RI (Rec: 10/31/18 15:18 RI [id number]) Nutrition Notes Need for Assessment generated from: MD Order Initial or Follow up Assessment Current Diagnosis Diabetes,Hypertension Other Pertinent Diagnosis morbid obesity; TIA Current Diet cardiac Labs/Tests alb 3.6 Pertinent Medications Reviewed Height 5 ft 5 in Weight 115.3 kg [place] Body Weight (kg) 56.81 BMI 42.3 Intake Prior to Admission Good Weight Status Morbidly Obese Subjective/Other Information Pt. reports she or daughter cook at home. She has a PCP who manages her diabetes. She is ok with supplements. 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 She admits to wt loss recently. Pt. w/hx of multiple myeloma. 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 Percent of energy/protein needs met: 40/40% Burn Absent Trauma Absent GI Symptoms None Current % PO Poor (25-49%) #1 Nutrition Diagnosis Inadequate oral intake Etiology poor appetite As Evidenced by Signs and Symptoms consuming <75% po intake EER of kcals/PRO Is patient on ventilator? No Is Patient Ambulatory and/or Out of Bed Yes REE-([facility]-ambulatory/OOB) [ 2156.544 NUTR.MSJOOB] Kcal/Kg value to use for calculation 15 Approximate Energy Requirements Using 1730 kcal/Kg Calculation Used for Recommendations Kcal/kg Additional Notes FLUID: 1 mL/kcal PROTEIN 0.8-1.0 G/KG/IBW 46-57 g/day Nutrition Intervention Change Diet Order: Cont cardiac Goal #1 po intake to exceed 75% for PRO/KCALS Revisit per MD consult or patient Sign Off request:
[2018-11-03 07:06] LABS: BUN/Creatinine Ratio 18; Blood Urea Nitrogen 16 mg/dL (7-17); Calcium 7.1 mg/dL (8.4-10.2); Hemolysis Index 35
[2018-11-03] MEDS ORDERED: DIPRIVAN 10 MG/ML IV ONE (08:24)
[2018-11-03] MEDS ORDERED: HURRICAINE ONE 20% TOPICAL SPRAY MM (08:35)
[2018-11-03] MEDS ORDERED: NACL 0.9% 500 ML 500 ML ONE (08:35)
--- NOTE | 2018-11-03 08:38 | Anesthesia Day of Surgery ---
Anesthesia Day of Surgery - Day of Surgery Patient Examined: Yes Patient H&P Reviewed: Yes Patient is NPO: Yes
--- NOTE | 2018-11-03 08:38 | Anesthesia Consultation ---
Anesthesia Consult and Med Hx Date of service: 11/03/18 - Airway Anesthetic Teeth Evaluation: Good ROM Head & Neck: Adequate Mental/Hyoid Distance: Adequate Mallampati Class: Class III Intubation Access Assessment: Possibly Difficult (short neck, thick neck) - Pulmonary Exam CTA: Yes - Cardiac Exam Cardiac Exam: No Murmur (irregular rhythm, tachycardic) - Pre-Operative Health Status ASA Pre-Surgery Classification: ASA3 Proposed Anesthetic Plan: MAC - Pulmonary Hx Smoking: No Hx Respiratory Symptoms: No - Cardiovascular System Hx Hypertension: Yes (BP borderline-normal while inpatient) Hx Heart Attack/AMI: No Hx Percutaneous Transluminal Coronary Angioplasty (PTCA): No Hx Cardia Arrhythmia: Yes (afib/flutter with RVR unresponsive to medical therapy) Hx Pacemaker: No Hx Internal Defibrillator: No - Central Nervous System CVA: Yes (TIA on admission; symptoms now resolved) - Gastrointestinal Hx Gastroesophageal Reflux Disease: No - Endocrine Hx Renal Disease: No Hx Liver Disease: No Hx Non-Insulin Dependent Diabetes: Yes Hx Thyroid Disease: No - Hematic Hx Anemia: No (Hx DVT on eliquis) - Other Systems Hx Obesity: Yes (BMI 41) - Additional Comments Anesthesia Medical History Comments: Hx post op respiratory failure with ICU admission after tibial nailing in 06/2018. Has had GA since then without complications.
[2018-11-03] MEDS ORDERED: HURRICAINE ONE 20% TOPICAL SPRAY MM NR (09:00)
[2018-11-03] MEDS ORDERED: NACL 0.9% 500 ML 500 ML IV SCH (09:00)
--- NOTE | 2018-11-03 10:10 | Progress Note ---
Subjective Date of service: 11/03/18 Interval history: Patient underwent ISAMAR with Anesthesia on standby.Findings: Normal LV function, 1.66/1cm size thrombus in the ESTEFANY. No shunt, NO MR, Grade 2 calcified atheromatous changes in the descending thoracic aorta. No cardioversion done. Final report dictated.Discussed with the patient's daughter in detail.Discussed with . Objective Vital Signs Temp Temp Pulse Pulse Pulse Pulse Pulse 11/03/18 09:51 120 H 11/03/18 09:36 97.1 F L 119 H 11/03/18 09:14 119 H 11/03/18 09:05 119 H 11/03/18 08:54 114 H 11/03/18 08:00 120 H 11/03/18 07:51 98.2 F 120 H 11/03/18 04:02 98.5 F 114 H 11/03/18 00:00 118 H 11/02/18 22:51 97.4 F L 122 H 11/02/18 19:34 97.9 F 117 H 11/02/18 17:54 11/02/18 15:54 98.0 F 97 H 11/02/18 14:00 120 H 11/02/18 12:12 97.7 F 125 H 11/02/18 12:00 80 11/02/18 11:14 120 H 11/02/18 11:06 123 H Resp Resp Resp Resp BP BP BP 11/03/18 09:51 10 L 111/67 11/03/18 09:36 11 L 111/72 11/03/18 09:14 15 115/85 11/03/18 09:05 22 11/03/18 08:54 23 11/03/18 08:00 16 11/03/18 07:51 18 117/48 11/03/18 04:02 20 125/81 11/03/18 00:00 11/02/18 22:51 18 104/64 11/02/18 19:34 20 94/61 11/02/18 17:54 114/67 11/02/18 15:54 20 83/34 11/02/18 14:00 11/02/18 12:12 20 129/83 11/02/18 12:00 11/02/18 11:14 11/02/18 11:06 BP Pulse Ox Pulse Ox Pulse Ox Pulse Ox 11/03/18 09:51 97 11/03/18 09:36 95 11/03/18 09:14 95 11/03/18 09:05 110/79 95 11/03/18 08:54 125/86 100 11/03/18 08:00 11/03/18 07:51 100 11/03/18 04:02 100 11/03/18 00:00 11/02/18 22:51 98 11/02/18 19:34 97 11/02/18 17:54 11/02/18 15:54 97 11/02/18 14:00 11/02/18 12:12 97 11/02/18 12:00 11/02/18 11:14 11/02/18 11:06 - Physical Examination General: No Apparent Distress HEENT: Positive: PERRL Neck: Positive: neck supple Neuro: Positive: Grossly Intact Abdomen: Positive: Unremarkable /Rectal: Urinary Diversion (deferred) Skin: Positive: Clear Musculoskeletal: Normal Range of Motion Extremities: Present: normal - Labs and Meds Comprehensive Metabolic Panel 11/03/18 Range/Units 06:41 Sodium 141 (137-145) mmol/L Potassium 3.4 L (3.6-5.0) mmol/L Chloride 103.2 (98-107) mmol/L Carbon Dioxide 26 (22-30) mmol/L BUN 16 (7-17) mg/dL Creatinine 0.9 (0.7-1.2) mg/dL Glucose 95 (65-100) mg/dL Calcium 7.1 L (8.4-10.2) mg/dL - Imaging and Cardiology Stress echo: report reviewed (10/31/18: EF 36%, cannot r/o ) Echo: report reviewed (10/31/18: EF 45-50%, mildly dilated RA, mod TR)
--- NOTE | 2018-11-03 10:20 | Event Note ---
Date: 11/03/18 Patient underwent ISAMAR with Anesthesia on standby.She tolerated the procedure well. Findings: 1.66/1 cm size thrombus in the ESTEFANY. No shunt. No MR.Grade 2 calcified atheromatous changes in the descending thoracic aorta.Cardioversion was not done.Final report dictated.Discussed with the patient's daughter in detail. Discussed with .
[2018-11-03] MEDS ORDERED: MAGNESIUM SULFATE 3 GM in NACL 0.9% 100 ML IV ONE (10:30)
[2018-11-03] MEDS: LOPRESSOR PO SCH (12:10)
[2018-11-03] MEDS: CYMBALTA PO SCH ×2 (12:10→21:08)
[2018-11-03] MEDS: ELIQUIS PO SCH (12:11)
[2018-11-03] MEDS: CARDIZEM PO SCH ×4 (12:12→21:08)
[2018-11-03] MEDS: TRADJENTA PO SCH (12:14)
[2018-11-03] MEDS: ASPIRIN PO SCH (12:14)
[2018-11-03] MEDS: ROCEPHIN/NS 1 GM/50 ML 1 GM/50 ML BAG IV SCH (12:16)
--- NOTE | 2018-11-03 12:59 | Progress Note ---
Assessment and Plan Assessment and plan: TIA. Patient reports what sounds like expressive aphasia that has now resolved. Carotid Doppler revealed less than 50% stenosis bilaterally. CT scan of head negative. Atrial fibrillation with RVR. Daughter reports new diagnosis occurring this year but has not seen a drawer in as of yet. Rate is not controlled. Continue anticoagulation. Cardiology following ISAMAR shows ESTEFANY thrombus, therefore Cardioversion not done History of bilateral lower extremity DVT. Patient was on Eliquis as outpatient. Multiple Myeloma. Dx Apr 2018. Followed by Dr. Flannery at [facility]. SIRS. Continue empiric antibiotics. OHS/HAO. Continue supportive care. O2 Morbid obesity. Patient has been counseled on balanced diet and increase physical activity at discharge. Hypertension. Continue antihypertensive medications. Diabetes mellitus type 2. Continue Accu-Cheks and sliding scale insulin. History Interval history: Palpitations, still occur No chest pain Hospitalist Physical - Physical exam Narrative exam: Gen: Not in acute distress, lying in bed, morbidly obese HEENT: Normocephalic, atraumatic Neck: supple, no JVD Heart: S1 and S2 irreg, irreg rapid,no murmurs, rubs or gallop Lungs: Clear, no crackles, no rhonchi Abd: soft, non tender, non distended, normal BS, Ext: No edema, no clubbing, no cyanosis Neuro: Awake,alert, Oriented X 3. No focal neuro signs Psych: normal mood - Constitutional Vitals: Temp Pulse Resp BP Pulse Ox 97.7 F 121 H 18 151/97 95 11/03/18 12:10 11/03/18 12:37 11/03/18 12:10 11/03/18 12:10 11/03/18 10:08 General appearance: Present: no acute distress Results - Labs CBC & Chem 7: 11/04/18 05:10 11/04/18 05:10 Labs: Laboratory Last Values WBC 7.8 K/mm3 (4.5-11.0) 11/01/18 09:40 RBC 5.71 M/mm3 (3.65-5.03) H 11/01/18 09:40 Hgb 14.6 gm/dl (10.1-14.3) H 11/01/18 09:40 Hct 45.1 % (30.3-42.9) H 11/01/18 09:40 MCV 79 fl (79-97) 11/01/18 09:40 MCH 26 pg (28-32) L 11/01/18 09:40 MCHC 33 % (30-34) 11/01/18 09:40 RDW 19.9 % (13.2-15.2) H 11/01/18 09:40 Plt Count 232 K/mm3 (140-440) 11/01/18 09:40 Lymph % (Auto) 9.7 % (13.4-35.0) L 10/30/18 16:13 [place] % (Auto) 10.3 % (0.0-7.3) H 10/30/18 16:13 Eos % (Auto) 0.7 % (0.0-4.3) 10/30/18 16:13 Baso % (Auto) 0.6 % (0.0-1.8) 10/30/18 16:13 Lymph # 1.2 K/mm3 (1.2-5.4) 10/30/18 16:13 [place] # 1.3 K/mm3 (0.0-0.8) H 10/30/18 16:13 Eos # 0.1 K/mm3 (0.0-0.4) 10/30/18 16:13 Baso # 0.1 K/mm3 (0.0-0.1) 10/30/18 16:13 Seg Neutrophils % 78.7 % (40.0-70.0) H 10/30/18 16:13 Seg Neutrophils # 9.6 K/mm3 (1.8-7.7) H 10/30/18 16:13 PT 15.3 Sec. (12.2-14.9) H 10/30/18 16:25 INR 1.24 (0.87-1.13) H 10/30/18 16:25 APTT 30.3 Sec. (24.2-36.6) 10/30/18 16:25 17.6 Sec. (15.1-19.6) 10/30/18 16:26 Sodium 141 mmol/L (137-145) 11/03/18 06:41 Potassium 3.4 mmol/L (3.6-5.0) L 11/03/18 06:41 Chloride 103.2 mmol/L (98-107) 11/03/18 06:41 Carbon Dioxide 26 mmol/L (22-30) 11/03/18 06:41 15 mmol/L 11/03/18 06:41 BUN 16 mg/dL (7-17) 11/03/18 06:41 0.9 mg/dL (0.7-1.2) 11/03/18 06:41 Estimated GFR > 60 ml/min 11/03/18 06:41 18 % 11/03/18 06:41 Glucose 95 mg/dL (65-100) 11/03/18 06:41 POC Glucose 90 (70-105) 11/03/18 11:44 Calcium 7.1 mg/dL (8.4-10.2) L 11/03/18 06:41 Magnesium 1.50 mg/dL (1.7-2.3) L 11/03/18 06:41 0.80 mg/dL (0.1-1.2) 10/30/18 16:13 AST 17 units/L (5-40) 10/30/18 16:13 ALT 12 units/L (7-56) 10/30/18 16:13 99 units/L (35-129) 10/30/18 16:13 < 0.010 ng/mL (0.00-0.029) 10/30/18 16:26 7.1 g/dL (6.3-8.2) 10/30/18 16:13 3.6 g/dL (3.9-5) L 10/30/18 16:13 1.0 % 10/30/18 16:13 Triglycerides 93 mg/dL (2-149) 10/31/18 06:46 Cholesterol 119 mg/dL (50-199) 10/31/18 06:46 51 mg/dL (50-130) 10/31/18 06:46 67 mg/dL (40-59) H 10/31/18 06:46 1.77 % 10/31/18 06:46 Maryann (Yellow) 10/30/18 18:11 Slightly-cloudy (Clear) 10/30/18 18:11 5.0 (5.0-7.0) 10/30/18 18:11 Ur Specific [place] 1.024 (1.003-1.030) 10/30/18 18:11 30 mg/dl mg/dL (Negative) 10/30/18 18:11 Neg mg/dL (Negative) 10/30/18 18:11 20 mg/dL (Negative) 10/30/18 18:11 Neg (Negative) 10/30/18 18:11 Neg (Negative) 10/30/18 18:11 Neg (Negative) 10/30/18 18:11 2.0 mg/dL (<2.0) 10/30/18 18:11 Ur Leukocyte Esterase Sm (Negative) 10/30/18 18:11 12.0 /HPF (0.0-6.0) H 10/30/18 18:11 < 1.0 /HPF (0.0-6.0) 10/30/18 18:11 U Epithel Cells (Auto) 16.0 /HPF (0-13.0) H 10/30/18 18:11 Ur Yeast w Hyphae Few /HPF 10/30/18 18:11 3+ /HPF 10/30/18 18:11 Active Medications - Current Medications Current Medications: Generic Name Dose Route Start Last Admin Trade Name Freq PRN Reason Stop Dose Admin Acetaminophen 650 mg 10/30/18 18:12 Tylenol PO Q4H PRN Pain, Mild (1-3) Albuterol 2.5 mg 10/30/18 18:12 Proventil IH Q3H PRN Shortness Of Breath Apixaban 2.5 mg 10/31/18 10:00 11/03/18 12:11 Eliquis PO 2.5 mg DAILY BEA Administration Protocol Aspirin 325 mg 10/31/18 10:00 11/03/18 12:14 Aspirin PO 325 mg QDAY BEA Administration Atorvastatin Calcium 20 mg 10/31/18 22:00 11/02/18 21:00 Lipitor PO 20 mg QHS BEA Administration Benzocaine 3 spray 11/03/18 09:00 11/03/18 09:07 Hurricaine One 20% Topical [place] MM 11/03/18 16:00 3 spray PREOP NR Administration Bisacodyl 10 mg 10/30/18 18:12 Dulcolax OR QDAY PRN Constipation Diltiazem HCl 60 mg 11/03/18 14:00 11/03/18 12:35 Cardizem PO 60 mg TID BEA Administration Duloxetine HCl 30 mg 10/31/18 22:00 11/03/18 12:10 Cymbalta PO 30 mg BID BEA Administration Ceftriaxone Sodium 1 gm in 50 mls @ 100 mls/hr 10/30/18 19:18 11/03/18 12:16 Rocephin/Ns 1 Gm/50 Ml IV 100 mls/hr Q24HR BEA Administration Protocol Sodium Chloride 500 mls @ 50 mls/hr 11/03/18 09:00 11/03/18 09:00 Nacl 0.9% 500 Ml IV 50 mls/hr DIRECT BEA Administration Magnesium Sulfate 3 gm/ Sodium 106 mls @ 35.333 mls/hr 11/03/18 10:30 11/03/18 12:26 Chloride IV 11/03/18 13:29 35.333 mls/hr ONCE ONE Administration Linagliptin 5 mg 11/01/18 10:00 11/03/18 12:14 Tradjenta PO 5 mg QDAY BEA Administration Magnesium Hydroxide 30 ml 10/30/18 18:12 Milk Of Magnesia PO Q4H PRN Constipation Metoclopramide HCl 10 mg 10/30/18 18:12 Reglan PO Q6H PRN Nausea And Vomiting Metoprolol Tartrate 100 mg 11/01/18 10:00 11/03/18 12:10 Lopressor PO 100 mg DAILY BEA Administration Morphine Sulfate 2 mg 10/31/18 04:11 10/31/18 04:27 Morphine IV 2 mg Q4H PRN Administration Pain, Moderate (4-6) Ondansetron HCl 4 mg 10/30/18 18:12 10/31/18 05:27 Zofran IV 4 mg Q8H PRN Administration Nausea And Vomiting Promethazine HCl 25 mg 10/30/18 18:12 Phenergan OR Q6H PRN Nausea And Vomiting Sodium Chloride 10 ml 10/30/18 18:12 Sodium Chloride Flush Syringe 10 Ml IV PRN PRN LINE FLUSH Nutrition/Malnutrition Assess - Dietary Evaluation Nutrition/Malnutrition Findings: Nutrition Notes Start: 10/31/18 15:05 Freq: Status: Active Protocol: Document 10/31/18 15:05 OH (Rec: 10/31/18 15:18 OH [id number]) Nutrition Notes Need for Assessment generated from: MD Order Initial or Follow up Assessment Current Diagnosis Diabetes,Hypertension Other Pertinent Diagnosis morbid obesity; TIA Current Diet cardiac Labs/Tests alb 3.6 Pertinent Medications Reviewed Height 5 ft 5 in Weight 115.3 kg [place] Body Weight (kg) 56.81 BMI 42.3 Intake Prior to Admission Good Weight Status Morbidly Obese Subjective/Other Information Pt. reports she or daughter cook at home. She has a PCP who manages her diabetes. She is ok with supplements. 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 She admits to wt loss recently. Pt. w/hx of multiple myeloma. 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 Percent of energy/protein needs met: 40/40% Burn Absent Trauma Absent GI Symptoms None Current % PO Poor (25-49%) #1 Nutrition Diagnosis Inadequate oral intake Etiology poor appetite As Evidenced by Signs and Symptoms consuming <75% po intake EER of kcals/PRO Is patient on ventilator? No Is Patient Ambulatory and/or Out of Bed Yes REE-([place]-ambulatory/OOB) [ 2156.544 NUTR.MSJOOB] Kcal/Kg value to use for calculation 15 Approximate Energy Requirements Using 1730 kcal/Kg Calculation Used for Recommendations Kcal/kg Additional Notes FLUID: 1 mL/kcal PROTEIN 0.8-1.0 G/KG/IBW 46-57 g/day Nutrition Intervention Change Diet Order: Cont cardiac Goal #1 po intake to exceed 75% for PRO/KCALS Revisit per MD consult or patient Sign Off request:
--- NOTE | 2018-11-03 13:00 | Progress Note ---
Assessment and Plan Patient remains in atrial flutter with RVR and cardioversion this AM not performed d/t left atrial appendage thrombus. Will increase diltiazem and carefully monitor blood pressure. Recommend potassium repletion - when normal, we will attempt to use Digoxin for rate control if needed. Will reassess thrombus and rhythm as outpatient in about one month and if she remains in atrial flutter, will consider cardioversion again. The patient has been seen in conjunction with Dr. Gomez, who agrees with assessment and plan. - Patient Problems (1) Atrial fibrillation/flutter Current Visit: Yes Status: Acute (2) TIA (transient ischemic attack) Current Visit: Yes Status: Acute (3) Diabetes Current Visit: Yes Status: Chronic (4) HTN (hypertension) Current Visit: Yes Status: Chronic Qualifiers: Hypertension type: essential hypertension Qualified Code(s): I10 - Essential (primary) hypertension (5) DVT, bilateral lower limbs Current Visit: No Status: Chronic Qualifiers: Affected thrombotic vein of extremity: popliteal Chronicity: acute Qualified Code(s): I82.433 - Acute embolism and thrombosis of popliteal vein, bilateral (6) Morbid obesity Current Visit: No Status: Chronic Subjective Date of service: 11/03/18 Interval history: The patient is s/p ISAMAR, which revealed a 1.66x1 cm thrombus in the ESTEFANY with no shunt and no MR. There are also grade 2 calcified atheromatous changes in descending thoracic aorta. Cardioversion not performed d/t these findings. She remains in atrial flutter with RVR. No complaints today. Objective Last Vital Signs Temp 97.7 F 11/03/18 12:10 Pulse 121 H 11/03/18 12:37 Resp 18 11/03/18 12:10 BP 151/97 11/03/18 12:10 Pulse Ox 95 11/03/18 10:08 - Physical Examination General: No Apparent Distress HEENT: Positive: PERRL Neck: Positive: neck supple Cardiac: Positive: Reg Rate and Rhythm Lungs: Positive: Normal Exam Neuro: Positive: Grossly Intact Abdomen: Positive: Unremarkable /Rectal: Other Skin: Positive: Clear Musculoskeletal: Normal Range of Motion Extremities: Present: normal - Labs and Meds Comprehensive Metabolic Panel 11/03/18 Range/Units 06:41 Sodium 141 (137-145) mmol/L Potassium 3.4 L (3.6-5.0) mmol/L Chloride 103.2 (98-107) mmol/L Carbon Dioxide 26 (22-30) mmol/L BUN 16 (7-17) mg/dL Creatinine 0.9 (0.7-1.2) mg/dL Glucose 95 (65-100) mg/dL Calcium 7.1 L (8.4-10.2) mg/dL - Imaging and Cardiology Stress echo: report reviewed (10/31/18: EF 36%, cannot r/o ) Echo: report reviewed (10/31/18: EF 45-50%, mildly dilated RA, mod TR) ISAMAR: report reviewed (11/03/18: 1.66x1 cm thrombus in ESTEFANY and grade 2 atheromatous changes in descending thoracic AA) - Telemetry EKG Rhythm: Atrial Flutter
[2018-11-04 05:26] LABS: Hematocrit 44.5 % (30.3-42.9); Hemoglobin 14.6 gm/dl (10.1-14.3); Mean Corpuscular HGB Conc 33 % (30-34); Mean Corpuscular Volume 79 fl (79-97); Platelet Count 222 K/mm3 (140-440); Red Blood Count 5.66 M/mm3 (3.65-5.03)
[2018-11-04 05:27] LABS: Red Cell Distribution Width 20.1 % (13.2-15.2)
[2018-11-04 05:51] LABS: BUN/Creatinine Ratio 16; Blood Urea Nitrogen 13 mg/dL (7-17); Calcium 7.5 mg/dL (8.4-10.2); Hemolysis Index 33
[2018-11-04] MEDS ORDERED: MAGNESIUM SULFATE 2GM/50ML 2 GM/50 ML BAG IV ONE (09:00)
[2018-11-04] MEDS ORDERED: K-DUR PO SCH (09:00)
--- NOTE | 2018-11-04 09:24 | Event Note ---
Date: 11/04/18 no new card complains remains in atrial flutter persistently hypokalemic chest clear cor rrr abd soft ext w/o edema Imp: atrial flutter. amarilys thrombus\ Plan: continue anticoagulation. normalize potassium. consider renal consult for persistent hypokalemia if it fails to correct once potassium in the normal range will add digoxin, but not while hypokalemic plan for reattempt at rubi guided cardioversion after 1mo of uniterrupted anticoag if remains in atrial flutter.
[2018-11-04] MEDS: CARDIZEM PO SCH ×3 (10:07→21:40)
[2018-11-04] MEDS: CYMBALTA PO SCH ×2 (10:09→21:40)
[2018-11-04] MEDS: LOPRESSOR PO SCH (10:09)
[2018-11-04] MEDS: TRADJENTA PO SCH (10:09)
[2018-11-04] MEDS: ASPIRIN PO SCH (10:09)
[2018-11-04] MEDS: ELIQUIS PO SCH ×2 (10:19→21:40)
[2018-11-04] MEDS: ROCEPHIN/NS 1 GM/50 ML 1 GM/50 ML BAG IV SCH (10:35)
--- NOTE | 2018-11-04 11:40 | Progress Note ---
Assessment and Plan Assessment and plan: TIA. Patient reports what sounds like expressive aphasia that has now resolved. Carotid Doppler revealed less than 50% stenosis bilaterally. CT scan of head negative. Atrial fibrillation with RVR. 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 Rate is not controlled. Continue anticoagulation. Cardiology following I Discussed with cardiology. To start Digoxin when Potassium normal. ISAMAR shows ESTEFANY thrombus, therefore Cardioversion not done Increase Eliquis to 5mg bid Hypokalemia Replace and recheck today History of bilateral lower extremity DVT. Patient was on Eliquis as outpatient. Multiple Myeloma. Dx Apr 2018. Followed by Dr. Flannery at [place]. SIRS. Continue empiric antibiotics. OHS/HAO. Continue supportive care. O2 Morbid obesity. Patient has been counseled on balanced diet and increase physical activity at discharge. Hypertension. Continue antihypertensive medications. Diabetes mellitus type 2. Continue Accu-Cheks and sliding scale insulin. History Interval history: Still having Palpitations, No chest pain Hospitalist Physical - Physical exam Narrative exam: Gen: Not in acute distress, lying in bed, morbidly obese HEENT: Normocephalic, atraumatic Neck: supple, no JVD Heart: S1 and S2 irreg, irreg rapid,no murmurs, rubs or gallop Lungs: Clear, no crackles, no rhonchi Abd: soft, non tender, non distended, normal BS, Ext: No edema, no clubbing, no cyanosis Neuro: Awake,alert, Oriented X 3. No focal neuro signs Psych: normal mood - Constitutional Vitals: Temp Pulse Resp BP Pulse Ox 98.6 F 118 H 18 113/59 97 11/04/18 07:24 11/04/18 10:09 11/04/18 07:24 11/04/18 10:09 11/04/18 07:24 General appearance: Present: no acute distress Results - Labs CBC & Chem 7: 11/04/18 05:10 11/04/18 05:10 Labs: Laboratory Last Values WBC 9.8 K/mm3 (4.5-11.0) 11/04/18 05:10 RBC 5.66 M/mm3 (3.65-5.03) H 11/04/18 05:10 Hgb 14.6 gm/dl (10.1-14.3) H 11/04/18 05:10 Hct 44.5 % (30.3-42.9) H 11/04/18 05:10 MCV 79 fl (79-97) 11/04/18 05:10 MCH 26 pg (28-32) L 11/04/18 05:10 MCHC 33 % (30-34) 11/04/18 05:10 RDW 20.1 % (13.2-15.2) H 11/04/18 05:10 Plt Count 222 K/mm3 (140-440) 11/04/18 05:10 Lymph % (Auto) 9.7 % (13.4-35.0) L 10/30/18 16:13 [place] % (Auto) 10.3 % (0.0-7.3) H 10/30/18 16:13 Eos % (Auto) 0.7 % (0.0-4.3) 10/30/18 16:13 Baso % (Auto) 0.6 % (0.0-1.8) 10/30/18 16:13 Lymph # 1.2 K/mm3 (1.2-5.4) 10/30/18 16:13 [place] # 1.3 K/mm3 (0.0-0.8) H 10/30/18 16:13 Eos # 0.1 K/mm3 (0.0-0.4) 10/30/18 16:13 Baso # 0.1 K/mm3 (0.0-0.1) 10/30/18 16:13 Seg Neutrophils % 78.7 % (40.0-70.0) H 10/30/18 16:13 Seg Neutrophils # 9.6 K/mm3 (1.8-7.7) H 10/30/18 16:13 PT 15.3 Sec. (12.2-14.9) H 10/30/18 16:25 INR 1.24 (0.87-1.13) H 10/30/18 16:25 APTT 30.3 Sec. (24.2-36.6) 10/30/18 16:25 17.6 Sec. (15.1-19.6) 10/30/18 16:26 Sodium 143 mmol/L (137-145) 11/04/18 05:10 Potassium 3.3 mmol/L (3.6-5.0) L 11/04/18 05:10 Chloride 105.2 mmol/L (98-107) 11/04/18 05:10 Carbon Dioxide 24 mmol/L (22-30) 11/04/18 05:10 17 mmol/L 11/04/18 05:10 BUN 13 mg/dL (7-17) 11/04/18 05:10 0.8 mg/dL (0.7-1.2) 11/04/18 05:10 Estimated GFR > 60 ml/min 11/04/18 05:10 16 % 11/04/18 05:10 Glucose 87 mg/dL (65-100) 11/04/18 05:10 POC Glucose 107 (70-105) H 11/03/18 20:24 Calcium 7.5 mg/dL (8.4-10.2) L 11/04/18 05:10 Magnesium 1.80 mg/dL (1.7-2.3) 11/04/18 05:10 0.80 mg/dL (0.1-1.2) 10/30/18 16:13 AST 17 units/L (5-40) 10/30/18 16:13 ALT 12 units/L (7-56) 10/30/18 16:13 99 units/L (35-129) 10/30/18 16:13 < 0.010 ng/mL (0.00-0.029) 10/30/18 16:26 7.1 g/dL (6.3-8.2) 10/30/18 16:13 3.6 g/dL (3.9-5) L 10/30/18 16:13 1.0 % 10/30/18 16:13 Triglycerides 93 mg/dL (2-149) 10/31/18 06:46 Cholesterol 119 mg/dL (50-199) 10/31/18 06:46 51 mg/dL (50-130) 10/31/18 06:46 67 mg/dL (40-59) H 10/31/18 06:46 1.77 % 10/31/18 06:46 Maryann (Yellow) 10/30/18 18:11 Slightly-cloudy (Clear) 10/30/18 18:11 5.0 (5.0-7.0) 10/30/18 18:11 Ur Specific [place] 1.024 (1.003-1.030) 10/30/18 18:11 30 mg/dl mg/dL (Negative) 10/30/18 18:11 Neg mg/dL (Negative) 10/30/18 18:11 20 mg/dL (Negative) 10/30/18 18:11 Neg (Negative) 10/30/18 18:11 Neg (Negative) 10/30/18 18:11 Neg (Negative) 10/30/18 18:11 2.0 mg/dL (<2.0) 10/30/18 18:11 Ur Leukocyte Esterase Sm (Negative) 10/30/18 18:11 12.0 /HPF (0.0-6.0) H 10/30/18 18:11 < 1.0 /HPF (0.0-6.0) 10/30/18 18:11 U Epithel Cells (Auto) 16.0 /HPF (0-13.0) H 10/30/18 18:11 Ur Yeast w Hyphae Few /HPF 10/30/18 18:11 3+ /HPF 10/30/18 18:11 Active Medications - Current Medications Current Medications: Generic Name Dose Route Start Last Admin Trade Name Freq PRN Reason Stop Dose Admin Acetaminophen 650 mg 10/30/18 18:12 Tylenol PO Q4H PRN Pain, Mild (1-3) Albuterol 2.5 mg 10/30/18 18:12 Proventil IH Q3H PRN Shortness Of Breath Apixaban 5 mg 11/04/18 10:00 11/04/18 10:19 Eliquis PO 5 mg Q12HR BEA Administration Protocol Aspirin 325 mg 10/31/18 10:00 11/04/18 10:09 Aspirin PO 325 mg QDAY BEA Administration Atorvastatin Calcium 20 mg 10/31/18 22:00 11/03/18 21:08 Lipitor PO 20 mg QHS BEA Administration Bisacodyl 10 mg 10/30/18 18:12 Dulcolax PA QDAY PRN Constipation Diltiazem HCl 60 mg 11/03/18 14:00 11/04/18 10:07 Cardizem PO 60 mg TID BEA Administration Duloxetine HCl 30 mg 10/31/18 22:00 11/04/18 10:09 Cymbalta PO 30 mg BID BEA Administration Ceftriaxone Sodium 1 gm in 50 mls @ 100 mls/hr 10/30/18 19:18 11/04/18 10:35 Rocephin/Ns 1 Gm/50 Ml IV 100 mls/hr Q24HR BEA Administration Protocol Sodium Chloride 500 mls @ 50 mls/hr 11/03/18 09:00 11/03/18 09:00 Nacl 0.9% 500 Ml IV 50 mls/hr DIRECT BEA Administration Linagliptin 5 mg 11/01/18 10:00 11/04/18 10:09 Tradjenta PO 5 mg QDAY BEA Administration Magnesium Hydroxide 30 ml 10/30/18 18:12 Milk Of Magnesia PO Q4H PRN Constipation Metoclopramide HCl 10 mg 10/30/18 18:12 Reglan PO Q6H PRN Nausea And Vomiting Metoprolol Tartrate 100 mg 11/01/18 10:00 11/04/18 10:09 Lopressor PO 100 mg DAILY BEA Administration Morphine Sulfate 2 mg 10/31/18 04:11 10/31/18 04:27 Morphine IV 2 mg Q4H PRN Administration Pain, Moderate (4-6) Ondansetron HCl 4 mg 10/30/18 18:12 10/31/18 05:27 Zofran IV 4 mg Q8H PRN Administration Nausea And Vomiting Potassium Chloride 40 meq 11/04/18 11:00 K-Dur PO 11/04/18 15:01 Q4H BEA Promethazine HCl 25 mg 10/30/18 18:12 Phenergan PA Q6H PRN Nausea And Vomiting Sodium Chloride 10 ml 10/30/18 18:12 Sodium Chloride Flush Syringe 10 Ml IV PRN PRN LINE FLUSH Nutrition/Malnutrition Assess - Dietary Evaluation Nutrition/Malnutrition Findings: Nutrition Notes Start: 10/31/18 15:05 Freq: Status: Active Protocol: Document 10/31/18 15:05 OH (Rec: 10/31/18 15:18 OH [id number]) Nutrition Notes Need for Assessment generated from: MD Order Initial or Follow up Assessment Current Diagnosis Diabetes,Hypertension Other Pertinent Diagnosis morbid obesity; TIA Current Diet cardiac Labs/Tests alb 3.6 Pertinent Medications Reviewed Height 5 ft 5 in Weight 115.3 kg [place] Body Weight (kg) 56.81 BMI 42.3 Intake Prior to Admission Good Weight Status Morbidly Obese Subjective/Other Information Pt. reports she or daughter cook at home. She has a PCP who manages her diabetes. She is ok with supplements. 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 She admits to wt loss recently. Pt. w/hx of multiple myeloma. 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 Percent of energy/protein needs met: 40/40% Burn Absent Trauma Absent GI Symptoms None Current % PO Poor (25-49%) #1 Nutrition Diagnosis Inadequate oral intake Etiology poor appetite As Evidenced by Signs and Symptoms consuming <75% po intake EER of kcals/PRO Is patient on ventilator? No Is Patient Ambulatory and/or Out of Bed Yes REE-([place]-ambulatory/OOB) [ 2156.544 NUTR.MSJOOB] Kcal/Kg value to use for calculation 15 Approximate Energy Requirements Using 1730 kcal/Kg Calculation Used for Recommendations Kcal/kg Additional Notes FLUID: 1 mL/kcal PROTEIN 0.8-1.0 G/KG/IBW 46-57 g/day Nutrition Intervention Change Diet Order: Cont cardiac Goal #1 po intake to exceed 75% for PRO/KCALS Revisit per MD consult or patient Sign Off request:
[2018-11-04] MEDS: K-DUR PO SCH ×4 (15:11→19:35)
[2018-11-04] MEDS ORDERED: K-DUR PO ONE (19:59)
[2018-11-05 05:27] LABS: BUN/Creatinine Ratio 18; Blood Urea Nitrogen 16 mg/dL (7-17); Hemolysis Index 16
[2018-11-05] MEDS: ASPIRIN PO SCH (09:31)
[2018-11-05] MEDS: CARDIZEM PO SCH ×3 (09:31→20:18)
[2018-11-05] MEDS: ROCEPHIN/NS 1 GM/50 ML 1 GM/50 ML BAG IV SCH (09:32)
[2018-11-05] MEDS: CYMBALTA PO SCH ×2 (09:33→22:08)
[2018-11-05] MEDS: ELIQUIS PO SCH ×2 (09:33→22:08)
[2018-11-05] MEDS: TRADJENTA PO SCH (09:33)
[2018-11-05] MEDS: LOPRESSOR PO SCH (09:33)
--- NOTE | 2018-11-05 09:44 | Progress Note ---
Assessment and Plan The patient's cardiac status is stable. Continue Eliquis. Recommend normalizing potassium and if hypokalemia is persistent, recommend nephrology consult. Will add digoxin once potassium is in normal range. If her heart rate and potassium are normal in AM, she may be discharged from our perspective. The patient was evaluated by Dr. Gomez, who developed assessment and plan. - Patient Problems (1) Atrial fibrillation/flutter Current Visit: Yes Status: Acute (2) TIA (transient ischemic attack) Current Visit: Yes Status: Acute (3) Diabetes Current Visit: Yes Status: Chronic (4) HTN (hypertension) Current Visit: Yes Status: Chronic Qualifiers: Hypertension type: essential hypertension Qualified Code(s): I10 - Essential (primary) hypertension (5) DVT, bilateral lower limbs Current Visit: No Status: Chronic Qualifiers: Affected thrombotic vein of extremity: popliteal Chronicity: acute Qualified Code(s): I82.433 - Acute embolism and thrombosis of popliteal vein, bilateral (6) Morbid obesity Current Visit: No Status: Chronic Subjective Date of service: 11/05/18 Interval history: The patient is lying in bed in [facility]. She is in atrial fibrillation with rates in the 90s on telemetry. She remains hypokalemic. Objective Vital Signs Temp Pulse Resp BP Pulse Ox 11/05/18 09:33 105 H 126/71 11/05/18 09:31 105 H 126/71 11/05/18 07:36 98.5 F 105 H 20 126/71 96 11/05/18 04:22 98.6 F 68 17 114/54 94 11/05/18 00:00 86 11/04/18 23:10 97.9 F 80 18 122/75 96 11/04/18 19:39 98.3 F 77 19 126/78 98 11/04/18 16:50 98.1 F 77 18 106/53 98 11/04/18 15:01 53 L 90/42 11/04/18 13:00 98.0 F 56 L 18 90/42 98 11/04/18 10:09 118 H 113/59 11/04/18 10:07 118 H 113/59 - Physical Examination General: No Apparent Distress HEENT: Positive: PERRL Neck: Positive: neck supple Cardiac: Positive: irregularly irregular Lungs: Positive: Normal Exam Neuro: Positive: Grossly Intact Abdomen: Positive: Unremarkable /Rectal: Other (deferred) Skin: Positive: Clear Musculoskeletal: Normal Range of Motion Extremities: Present: normal - Labs and Meds Comprehensive Metabolic Panel 11/04/18 11/05/18 Range/Units 16:12 04:07 Sodium 144 (137-145) mmol/L Potassium 3.8 4.6 D (3.6-5.0) mmol/L Chloride 108.7 H (98-107) mmol/L Carbon Dioxide 25 (22-30) mmol/L BUN 16 (7-17) mg/dL Creatinine 0.9 (0.7-1.2) mg/dL Glucose 110 H (65-100) mg/dL Calcium 8.0 L (8.4-10.2) mg/dL - Imaging and Cardiology Stress echo: report reviewed (10/31/18: EF 36%, cannot r/o ) Echo: report reviewed (10/31/18: EF 45-50%, mildly dilated RA, mod TR) - Telemetry EKG Rhythm: Atrial Fibrillation
--- NOTE | 2018-11-05 09:53 | Progress Note ---
Assessment and Plan Assessment and plan: TIA. Patient reports what sounds like expressive aphasia that has now resolved. Carotid Doppler revealed less than 50% stenosis bilaterally. CT scan of head negative. Atrial fibrillation with RVR. 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 Rate is not controlled. Continue anticoagulation. Cardiology following I Discussed with cardiology. To start Digoxin when Potassium normal. ISAMAR shows ESTEFANY thrombus, therefore Cardioversion not done Increased Eliquis to 5mg bid Cardiology to possibly start Digoxin today Hypokalemia Now resolved after replacement History of bilateral lower extremity DVT. Patient was on Eliquis as outpatient. Multiple Myeloma. Dx Apr 2018. Followed by Dr. Flannery at [place]. SIRS. Continue empiric antibiotics. OHS/HAO. Continue supportive care. O2 Morbid obesity. Patient has been counseled on balanced diet and increase physical activity at discharge. Hypertension. Continue antihypertensive medications. Diabetes mellitus type 2. Continue Accu-Cheks and sliding scale insulin. History Interval history: Still having Palpitations, No chest pain Hospitalist Physical - Physical exam Narrative exam: Gen: Not in acute distress, lying in bed, morbidly obese HEENT: Normocephalic, atraumatic Neck: supple, no JVD Heart: S1 and S2 irreg, irreg rapid.no murmurs, rubs or gallop Lungs: Clear, no crackles, no rhonchi Abd: soft, non tender, non distended, normal BS, Ext: No edema, no clubbing, no cyanosis Neuro: Awake,alert, Oriented X 3. No focal neuro signs Psych: normal mood - Constitutional Vitals: Temp Pulse Resp BP Pulse Ox 98.5 F 105 H 20 126/71 96 11/05/18 07:36 11/05/18 09:33 11/05/18 07:36 11/05/18 09:33 11/05/18 07:36 General appearance: Present: no acute distress Results - Labs CBC & Chem 7: 11/04/18 05:10 11/05/18 04:07 Labs: Laboratory Last Values WBC 9.8 K/mm3 (4.5-11.0) 11/04/18 05:10 RBC 5.66 M/mm3 (3.65-5.03) H 11/04/18 05:10 Hgb 14.6 gm/dl (10.1-14.3) H 11/04/18 05:10 Hct 44.5 % (30.3-42.9) H 11/04/18 05:10 MCV 79 fl (79-97) 11/04/18 05:10 MCH 26 pg (28-32) L 11/04/18 05:10 MCHC 33 % (30-34) 11/04/18 05:10 RDW 20.1 % (13.2-15.2) H 11/04/18 05:10 Plt Count 222 K/mm3 (140-440) 11/04/18 05:10 Lymph % (Auto) 9.7 % (13.4-35.0) L 10/30/18 16:13 [place] % (Auto) 10.3 % (0.0-7.3) H 10/30/18 16:13 Eos % (Auto) 0.7 % (0.0-4.3) 10/30/18 16:13 Baso % (Auto) 0.6 % (0.0-1.8) 10/30/18 16:13 Lymph # 1.2 K/mm3 (1.2-5.4) 10/30/18 16:13 [place] # 1.3 K/mm3 (0.0-0.8) H 10/30/18 16:13 Eos # 0.1 K/mm3 (0.0-0.4) 10/30/18 16:13 Baso # 0.1 K/mm3 (0.0-0.1) 10/30/18 16:13 Seg Neutrophils % 78.7 % (40.0-70.0) H 10/30/18 16:13 Seg Neutrophils # 9.6 K/mm3 (1.8-7.7) H 10/30/18 16:13 PT 15.3 Sec. (12.2-14.9) H 10/30/18 16:25 INR 1.24 (0.87-1.13) H 10/30/18 16:25 APTT 30.3 Sec. (24.2-36.6) 10/30/18 16:25 17.6 Sec. (15.1-19.6) 10/30/18 16:26 Sodium 144 mmol/L (137-145) 11/05/18 04:07 Potassium 4.6 mmol/L (3.6-5.0) D 11/05/18 04:07 Chloride 108.7 mmol/L (98-107) H 11/05/18 04:07 Carbon Dioxide 25 mmol/L (22-30) 11/05/18 04:07 15 mmol/L 11/05/18 04:07 BUN 16 mg/dL (7-17) 11/05/18 04:07 0.9 mg/dL (0.7-1.2) 11/05/18 04:07 Estimated GFR > 60 ml/min 11/05/18 04:07 18 % 11/05/18 04:07 Glucose 110 mg/dL (65-100) H 11/05/18 04:07 POC Glucose 116 (70-105) H 11/04/18 20:49 Calcium 8.0 mg/dL (8.4-10.2) L 11/05/18 04:07 Magnesium 1.80 mg/dL (1.7-2.3) 11/04/18 05:10 0.80 mg/dL (0.1-1.2) 10/30/18 16:13 AST 17 units/L (5-40) 10/30/18 16:13 ALT 12 units/L (7-56) 10/30/18 16:13 99 units/L (35-129) 10/30/18 16:13 < 0.010 ng/mL (0.00-0.029) 10/30/18 16:26 7.1 g/dL (6.3-8.2) 10/30/18 16:13 3.6 g/dL (3.9-5) L 10/30/18 16:13 1.0 % 10/30/18 16:13 Triglycerides 93 mg/dL (2-149) 10/31/18 06:46 Cholesterol 119 mg/dL (50-199) 10/31/18 06:46 51 mg/dL (50-130) 10/31/18 06:46 67 mg/dL (40-59) H 10/31/18 06:46 1.77 % 10/31/18 06:46 Mary[place] (Yellow) 10/30/18 18:11 Slightly-cloudy (Clear) 10/30/18 18:11 5.0 (5.0-7.0) 10/30/18 18:11 Ur Specific [place] 1.024 (1.003-1.030) 10/30/18 18:11 30 mg/dl mg/dL (Negative) 10/30/18 18:11 Neg mg/dL (Negative) 10/30/18 18:11 20 mg/dL (Negative) 10/30/18 18:11 Neg (Negative) 10/30/18 18:11 Neg (Negative) 10/30/18 18:11 Neg (Negative) 10/30/18 18:11 2.0 mg/dL (<2.0) 10/30/18 18:11 Ur Leukocyte Esterase Sm (Negative) 10/30/18 18:11 12.0 /HPF (0.0-6.0) H 10/30/18 18:11 < 1.0 /HPF (0.0-6.0) 10/30/18 18:11 U Epithel Cells (Auto) 16.0 /HPF (0-13.0) H 10/30/18 18:11 Ur Yeast w Hyphae Few /HPF 10/30/18 18:11 3+ /HPF 10/30/18 18:11 Active Medications - Current Medications Current Medications: Generic Name Dose Route Start Last Admin Trade Name Freq PRN Reason Stop Dose Admin Acetaminophen 650 mg 10/30/18 18:12 Tylenol PO Q4H PRN Pain, Mild (1-3) Albuterol 2.5 mg 10/30/18 18:12 Proventil IH Q3H PRN Shortness Of Breath Apixaban 5 mg 11/04/18 10:00 11/05/18 09:33 Eliquis PO 5 mg Q12HR BEA Administration Protocol Aspirin 325 mg 10/31/18 10:00 11/05/18 09:31 Aspirin PO 325 mg QDAY BEA Administration Atorvastatin Calcium 20 mg 10/31/18 22:00 11/04/18 21:40 Lipitor PO 20 mg QHS BEA Administration Bisacodyl 10 mg 10/30/18 18:12 Dulcolax [place] QDAY PRN Constipation Diltiazem HCl 60 mg 11/03/18 14:00 11/05/18 09:31 Cardizem PO 60 mg TID BEA Administration Duloxetine HCl 30 mg 10/31/18 22:00 11/05/18 09:33 Cymbalta PO 30 mg BID BEA Administration Ceftriaxone Sodium 1 gm in 50 mls @ 100 mls/hr 10/30/18 19:18 11/05/18 09:32 Rocephin/Ns 1 Gm/50 Ml IV 100 mls/hr Q24HR BEA Administration Protocol Sodium Chloride 500 mls @ 50 mls/hr 11/03/18 09:00 11/03/18 19:00 Nacl 0.9% 500 Ml IV Infused DIRECT BEA Infusion Linagliptin 5 mg 11/01/18 10:00 11/05/18 09:33 Tradjenta PO 5 mg QDAY BEA Administration Magnesium Hydroxide 30 ml 10/30/18 18:12 Milk Of Magnesia PO Q4H PRN Constipation Metoclopramide HCl 10 mg 10/30/18 18:12 Reglan PO Q6H PRN Nausea And Vomiting Metoprolol Tartrate 100 mg 11/01/18 10:00 11/05/18 09:33 Lopressor PO 100 mg DAILY BEA Administration Morphine Sulfate 2 mg 10/31/18 04:11 10/31/18 04:27 Morphine IV 2 mg Q4H PRN Administration Pain, Moderate (4-6) Ondansetron HCl 4 mg 10/30/18 18:12 10/31/18 05:27 Zofran IV 4 mg Q8H PRN Administration Nausea And Vomiting Promethazine HCl 25 mg 10/30/18 18:12 Phenergan [place] Q6H PRN Nausea And Vomiting Sodium Chloride 10 ml 10/30/18 18:12 Sodium Chloride Flush Syringe 10 Ml IV PRN PRN LINE FLUSH Nutrition/Malnutrition Assess - Dietary Evaluation Nutrition/Malnutrition Findings: Nutrition Notes Start: 10/31/18 15:05 Freq: Status: Active Protocol: Document 10/31/18 15:05 OH (Rec: 10/31/18 15:18 OH [id number]) Nutrition Notes Need for Assessment generated from: MD Order Initial or Follow up Assessment Current Diagnosis Diabetes,Hypertension Other Pertinent Diagnosis morbid obesity; TIA Current Diet cardiac Labs/Tests alb 3.6 Pertinent Medications Reviewed Height 5 ft 5 in Weight 115.3 kg [place] Body Weight (kg) 56.81 BMI 42.3 Intake Prior to Admission Good Weight Status Morbidly Obese Subjective/Other Information Pt. reports she or daughter cook at home. She has a PCP who manages her diabetes. She is ok with supplements. [employer]ELANCE [employer] DIRECT[employer] pt consuming 1 meal/1 snack at home daily. She admits to wt loss recently. Pt. w/hx of multiple myeloma. 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 Percent of energy/protein needs met: 40/40% Burn Absent Trauma Absent GI Symptoms None Current % PO Poor (25-49%) #1 Nutrition Diagnosis Inadequate oral intake Etiology poor appetite As Evidenced by Signs and Symptoms consuming <75% po intake EER of kcals/PRO Is patient on ventilator? No Is Patient Ambulatory and/or Out of Bed Yes REE-([place]-St. Jeor-ambulatory/OOB) [ 2156.544 NUTR.MSJOOB] Kcal/Kg value to use for calculation 15 Approximate Energy Requirements Using 1730 kcal/Kg Calculation Used for Recommendations Kcal/kg Additional Notes FLUID: 1 mL/kcal PROTEIN 0.8-1.0 G/KG/IBW 46-57 g/day Nutrition Intervention Change Diet Order: Cont cardiac Goal #1 po intake to exceed 75% for PRO/KCALS Revisit per MD consult or patient Sign Off request:
[2018-11-06] MEDS: CARDIZEM PO SCH ×2 (08:10→14:34)
[2018-11-06 08:11] LABS: BUN/Creatinine Ratio 17; Blood Urea Nitrogen 12 mg/dL (7-17); Calcium 8.3 mg/dL (8.4-10.2); Hemolysis Index 8
--- NOTE | 2018-11-06 09:34 | Progress Note ---
Subjective Date of service: 11/06/18 Interval history: reviewed labs/notes / recent imaging studies stable interval will continue careful monitoring Objective - Vital Sign Vital Signs - 12hr 11/05/18 11/05/18 11/05/18 22:08 22:30 23:02 Temperature 98.2 F Pulse Rate 87 Pulse Rate [ 75 Apical] Respiratory 18 17 Rate Blood Pressure 135/72 108/68 O2 Sat by Pulse 98 98 Oximetry 11/06/18 11/06/18 11/06/18 04:10 07:48 08:10 Temperature 97.6 F 98.4 F Pulse Rate 104 H 92 H Pulse Rate [ Apical] Respiratory 18 18 Rate Blood Pressure 127/86 161/89 161/89 O2 Sat by Pulse 94 Oximetry - Laboratory Findings CBC and BMP: 11/04/18 05:10 11/06/18 06:56 Abnormal Lab Findings: Abnormal Labs 10/30/18 10/30/18 10/30/18 16:13 16:13 16:13 WBC 12.2 H RBC 6.07 H Hgb 15.6 H Hct 48.2 H MCH 26 L RDW 19.9 H Lymph % (Auto) 9.[address] [place] % (Auto) 10.[address] [place] # 1.3 H Seg Neutrophils % 78.7 H Seg Neutrophils # 9.6 H PT INR Sodium Potassium 3.3 L Chloride Glucose POC Glucose Calcium 7.4 L Magnesium 1.50 L Albumin 3.6 L HDL Cholesterol Urine WBC (Auto) U Epithel Cells (Auto) 10/30/18 10/30/18 10/31/18 16:25 18:11 06:46 WBC RBC Hgb Hct MCH RDW Lymph % (Auto) [place] % (Auto) [place] # Seg Neutrophils % Seg Neutrophils # PT 15.3 H INR 1.24 H Sodium Potassium Chloride Glucose POC Glucose Calcium Magnesium Albumin HDL Cholesterol 67 H Urine WBC (Auto) 12.0 H U Epithel Cells (Auto) 16.0 H 11/01/18 11/01/18 11/02/18 09:40 09:40 00:22 WBC RBC 5.71 H Hgb 14.6 H Hct 45.1 H MCH 26 L RDW 19.9 H Lymph % (Auto) [place] % (Auto) [place] # Seg Neutrophils % Seg Neutrophils # PT INR Sodium Potassium 3.4 L 3.3 L Chloride Glucose 116 H POC Glucose Calcium 7.2 L 7.4 L Magnesium 1.50 L Albumin HDL Cholesterol Urine WBC (Auto) U Epithel Cells (Auto) 11/02/18 11/02/18 11/03/18 03:52 20:42 06:41 WBC RBC Hgb Hct MCH RDW Lymph % (Auto) [place] % (Auto) [place] # Seg Neutrophils % Seg Neutrophils # PT INR Sodium 146 H Potassium 3.3 L 3.4 L Chloride Glucose POC Glucose 117 H Calcium 7.3 L 7.1 L Magnesium Albumin HDL Cholesterol Urine WBC (Auto) U Epithel Cells (Auto) 11/03/18 11/03/18 11/03/18 06:41 17:16 20:24 WBC RBC Hgb Hct MCH RDW Lymph % (Auto) [place] % (Auto) [place] # Seg Neutrophils % Seg Neutrophils # PT INR Sodium Potassium Chloride Glucose POC Glucose 192 H 107 H Calcium Magnesium 1.50 L Albumin HDL Cholesterol Urine WBC (Auto) U Epithel Cells (Auto) 11/04/18 11/04/18 11/04/18 05:10 05:10 20:49 WBC RBC 5.66 H Hgb 14.6 H Hct 44.5 H MCH 26 L RDW 20.1 H Lymph % (Auto) [place] % (Auto) [place] # Seg Neutrophils % Seg Neutrophils # PT INR Sodium Potassium 3.3 L Chloride Glucose POC Glucose 116 H Calcium 7.5 L Magnesium Albumin HDL Cholesterol Urine WBC (Auto) U Epithel Cells (Auto) 11/05/18 11/06/18 04:07 06:56 WBC RBC Hgb Hct MCH RDW Lymph % (Auto) [place] % (Auto) [place] # Seg Neutrophils % Seg Neutrophils # PT INR Sodium Potassium Chloride 108.7 H Glucose 110 H POC Glucose Calcium 8.0 L 8.3 L Magnesium Albumin HDL Cholesterol Urine WBC (Auto) U Epithel Cells (Auto)
[2018-11-06] MEDS: TRADJENTA PO SCH (09:51)
[2018-11-06] MEDS: ROCEPHIN/NS 1 GM/50 ML 1 GM/50 ML BAG IV SCH (09:51)
[2018-11-06] MEDS: CYMBALTA PO SCH (09:51)
[2018-11-06] MEDS: ELIQUIS PO SCH (09:51)
[2018-11-06] MEDS: LOPRESSOR PO SCH (09:52)
[2018-11-06] MEDS: ASPIRIN PO SCH (09:57)
[2018-11-06] MEDS: MORPHINE IV PRN (12:28)
--- NOTE | 2018-11-06 14:07 | Progress Note ---
Assessment and Plan The patient is currently in atrial flutter with CVR; therefore, we will not give Digoxin at this time. Continue AV nico blockers and Eliquis. She may be discharged from a cardiac standpoint. We recommend follow up in our office with Dr. Gomez in two weeks. Call for an appointment. The patient has been seen in conjunction with Dr. Gomez, who agrees with the assessment and plan. - Patient Problems (1) Atrial fibrillation/flutter Current Visit: Yes Status: Acute (2) TIA (transient ischemic attack) Current Visit: Yes Status: Acute (3) Diabetes Current Visit: Yes Status: Chronic (4) HTN (hypertension) Current Visit: Yes Status: Chronic Qualifiers: Hypertension type: essential hypertension Qualified Code(s): I10 - Essential (primary) hypertension (5) DVT, bilateral lower limbs Current Visit: No Status: Chronic Qualifiers: Affected thrombotic vein of extremity: popliteal Chronicity: acute Qualified Code(s): I82.433 - Acute embolism and thrombosis of popliteal vein, bilateral (6) Morbid obesity Current Visit: No Status: Chronic Subjective Date of service: 11/06/18 Interval history: The patient is resting in bed in [facility]. No new complaints. She is in atrial flutter with CVR on telemetry. Objective Last Vital Signs Temp 98.4 F 11/06/18 12:24 Pulse 100 H 11/06/18 10:00 Resp 16 11/06/18 12:58 BP 130/79 11/06/18 12:24 Pulse Ox 99 11/06/18 10:00 - Physical Examination General: No Apparent Distress HEENT: Positive: PERRL Neck: Positive: neck supple Cardiac: Positive: Regular Rate Lungs: Positive: Normal Exam Neuro: Positive: Grossly Intact Abdomen: Positive: Unremarkable /Rectal: Other (deferred) Skin: Positive: Clear Musculoskeletal: Normal Range of Motion Extremities: Present: normal - Labs and Meds Comprehensive Metabolic Panel 11/06/18 Range/Units 06:56 Sodium 142 (137-145) mmol/L Potassium 4.5 (3.6-5.0) mmol/L Chloride 105.3 (98-107) mmol/L Carbon Dioxide 25 (22-30) mmol/L BUN 12 (7-17) mg/dL Creatinine 0.7 (0.7-1.2) mg/dL Glucose 91 (65-100) mg/dL Calcium 8.3 L (8.4-10.2) mg/dL - Imaging and Cardiology Stress echo: report reviewed (10/31/18: EF 36%, cannot r/o ) Echo: report reviewed (10/31/18: EF 45-50%, mildly dilated RA, mod TR)
--- NOTE | 2018-11-06 14:28 | Discharge Summary ---
Providers - Providers Date of Admission: 10/30/18 18:12 Date of discharge: 11/06/18 Attending physician: EDDIE ALVAREZ 10/30/18 18:12 Occupational Therapy Evaluate and Treat [CONS] Routine Comment: Reason For Exam: Neuro deficits Physical Therapy Evaluation and Treat [CONS] Routine Comment: Reason For Exam: Neuro deficits 10/30/18 18:14 Consult to Physician [CONS] Routine Comment: Consulting Provider: SATYA VALERIO Physician Instructions: Reason For Exam: cva 10/30/18 20:17 Consult to Dietitian/Nutrition [CONS] Routine Physician Instructions: Reason For Exam: Reason for Consult: Poor oral intake 10/31/18 11:18 Consult to Physician [CONS] Routine Comment: Consulting Provider: CARLOS DUONG Physician Instructions: Reason For Exam: new dx afib Primary care physician: CRISTOPHER ESTRADA Hospitalization Condition: Fair Disposition: DC/[place]-06 HOME UNDER HOME [facility] Core Measure Documentation - Palliative Care Palliative Care/ Comfort Measures: Not Applicable - Core Measures Any of the following diagnoses?: none Exam - Constitutional Vitals: Temp Pulse Resp BP Pulse Ox 98.4 F 100 H 16 130/79 99 11/06/18 12:24 11/06/18 10:00 11/06/18 12:58 11/06/18 12:24 11/06/18 10:00 Plan Activity: advance as tolerated Diet: low fat, low cholesterol, low salt Plan of Treatment: 1.Follow up with PCP in 3-5 days. 2.Follow up with Dr. Gomez, Cardiology in 1 - 2 weeks Assessment: 1.TIA 2.Atrial fibrillation with RVR 3.Thrombus ESTEFANY Follow up with: JORGITO BARROWZAHL MD ROXANA [Referring] - 3-5 Days Prescriptions: dilTIAZem [CarDIZEM] 60 mg PO QID #90 tablet Apixaban [Eliquis] 5 mg PO Q12HR #60 tablet Aspirin EC [Halfprin EC] 81 mg PO QDAY #30 tablet. Famotidine [Pepcid] 20 mg PO BID #60 tablet
[2018-11-06 14:33] VITALS: BP 100/52
== END 2018-11-06 16:53 | disposition home health service (06) | DRG 69 ==
LOC: ED 15:43 → 4A 18:12
PROVIDERS: ADMIT Internal Medicine; ATTEND Internal Medicine
DX: G45.9 Transient cerebral ischemic attack, unspecified (principal); I48.92 Unspecified atrial flutter; R65.10 Systemic inflammatory response syndrome (SIRS) of non-infectious origin without acute organ dysfunction; C90.00 Multiple myeloma not having achieved remission; Z68.41 Body mass index [BMI] 40.0-44.9, adult; R47.01 Aphasia; E66.2 Morbid (severe) obesity with alveolar hypoventilation; I82.433 Acute embolism and thrombosis of popliteal vein, bilateral; E11.40 Type 2 diabetes mellitus with diabetic neuropathy, unspecified; Z60.2 Problems related to living alone; R29.702 NIHSS score 2; I10 Essential (primary) hypertension; I51.3 Intracardiac thrombosis, not elsewhere classified; I48.2 Chronic atrial fibrillation; Z86.718 Personal history of other venous thrombosis and embolism; Z79.01 Long term (current) use of anticoagulants; Z83.3 Family history of diabetes mellitus; Z82.49 Family history of ischemic heart disease and other diseases of the circulatory system; Z79.84 Long term (current) use of oral hypoglycemic drugs
CPT/HCPCS: 36415; 70450; 70544; 70551; 71045; 80048; 80053; 80061; 81001; 82962; 83735; 84132; 84484; 85025; 85027; 85610; 85670; 85730; 87086; 87116; 93005; 93010; 93306; 93312; 93320; 93325; 93880; 95819; 96360; 96361; G0378; A9270-GY; J0696; J2270; J2405; J2704; J3475; J7030; J7040